=== PATIENT | male | born 1930 | race Caucasian/White ===

== ENCOUNTER 2016-06-09 09:26 | Inpatient (IN) | payer MEDICARE, OTHER ==
[2016-06-09] VITALS (10 sets, daily range): BP systolic 92–137; BP diastolic 67–97; BMI 27.5
[~2016-06-09] VITALS: Ht 175.3 cm; Wt 130.5 kg
[2016-06-09 09:50] LABS: BASOPHILS 0.1 % (0.0-2.0); EOSINOPHILS 0.5 % (0-7); HEMATOCRIT 42.1 % (42.0-54.0); HEMOGLOBIN 13.9 g/dL (13.5-17.5); IMMATURE GRANULOCYTES 0.3 % (0-5); LYMPHOCYTES 21.8 % (15-50); MCH 31.5 pg (26.0-34.0); MCV 95.5 fL (80.0-100.0); MEAN PLATELET VOLUME 11.9 fL (7.4-10.4); MONOCYTES 3.5 % (2-11); NEUTROPHILS 73.8 % (40-80); PLATELET COUNT 123 10x3/uL (130-400); RBC 4.41 10x6/uL (4.20-6.10); RDW 15.2 % (11.5-14.5); WBC 13.1 10x3/uL (4.8-10.8)
[2016-06-09 10:07] LABS: APPEARANCE CLEAR (CLEAR); BILIRUBIN NEGATIVE (NEGATIVE); COLOR YELLOW (YELLOW); GLUCOSE NEGATIVE (NEGATIVE); KETONE NEGATIVE (NEGATIVE); LEUKOCYTE ESTERASE TRACE (NEGATIVE); NITRITE NEGATIVE (NEGATIVE); PROTEIN TRACE mg/dL (NEGATIVE); UROBILINOGEN NORMAL (NORMAL)
[2016-06-09 10:08] LABS: BACTERIA MODERATE /hpf (NONE SEEN); EPITHELIAL CELLS 0-5 /hpf (0-5); HYALINE CAST 0-5 /lpf (NONE SEEN); MUCUS <1+ /lpf (NONE SEEN); RED CELLS - URINE 0-5 /hpf (0-5); WHITE CELLS - URINE 0-5 /hpf (0-5)
[2016-06-09 10:27] LABS: ALBUMIN 3.8 g/dL (3.4-5.0); ALKALINE PHOSPHATASE 79 U/L (46-116); ALT (SGPT) 69 U/L (10-68); BILIRUBIN - TOTAL 1.03 mg/dL (0.2-1.3); CREATININE - SERUM 1.3 mg/dL (0.6-1.3); GLUCOSE 222 mg/dL (74-106); PROTEIN - SERUM 6.8 g/dL (6.4-8.2); eGFR NON AFRICAN AMERICAN 56 mL/min (90-120)
[2016-06-09 10:50] LABS: CALC OSMOLALITY 291 mosm/kg (275-300); CALCIUM 9.1 mg/dL (8.5-10.1); CHLORIDE - SERUM 102 mmol/L (98-107); CKMB 0.7 U/L (0.0-3.6); CREATINE KINASE 24 UL (21-232); PRO BNP 3506 pg/mL (0-450); SODIUM 141 mmol/L (136-145); UREA NITROGEN 25 mg/dL (7-18)
[2016-06-09 10:51] LABS: POTASSIUM - SERUM 2.7 mmol/L (3.5-5.1)
[2016-06-09] MEDS ORDERED: ARICEPT10 MG PO (13:21)
[2016-06-09] MEDS ORDERED: LIPITOR40 MG PO (13:21)
[2016-06-09] MEDS ORDERED: PAROXETINE HCL10 MG PO (13:21)
[2016-06-09] MEDS ORDERED: NIASPAN500 MG PO (13:22)
[2016-06-09] MEDS ORDERED: NAMENDA XR28 MG PO (13:22)
[2016-06-09] MEDS ORDERED: LINZESS145 MCG PO (13:23)
[2016-06-09] MEDS ORDERED: BAYER CHEWABLE81 MG PO (13:23)
[2016-06-09] MEDS ORDERED: POTASSIUM CHLO10 ME1 PO (13:23)
[2016-06-09] MEDS ORDERED: ENULOSE10 G/15 ML PO (13:24)
--- NOTE | 2016-06-09 14:12 | NUR ---
PATIENTS ADMISSION COMPLETED. PATIENT VOMITED ONE TIME (APPROX 40CC) OF ORANGE LIQUID WITH A LITTLE MUCOUS PRESENT. IV TO RIGHT AC BEEPS EVERYTIME PATIENT MOVES HIS ARM. HIS SECOND IV SITED TO RIGHT WRIST ON FIRST STICK WITH 20G. LEFT THE RIGHT AC SALINE LOCKED. PATIENT REPOSITIONED TO LEFT SIDE FOR COMFORT. AT BEDSIDE. BOTH ARE TALKING WITH DR PAGAN WHEN THIS NURSE LEFT THE ROOM.
[2016-06-09 16:38] LABS: HEMOGLOBIN A1C 6.3 % (4.8-6.0)
--- NOTE | 2016-06-09 19:30 | NUR ---
Assessment complete. See flowsheet. Pt awake with at bedside upon entrance into room. SPO2 91% with O2 @ 4L NC and increased to 5L to obtain SPO2 92%. Respirations shallow and unlabored. Pt alert, oriented to person, place, time and situation and following all conversation and commands with no neuro deficits noted. Pupils size 3 bilaterally ERRLA. Pt moving all extremities 3/5 strength with generalized edema noted. Lung sounds clear/diminished to all cuevas. HR UCAF 104BPM with S1S2 auscultated. All peripheral pulses +2 with capillary refill <3 seconds. Pt left hand 22g PIV site CDI no s/s infection saline locked. Pt right A/C 20g PIV site CDI no s/s infection saline locked. Pt right wrist 20g PIV site CDI no s/s infection or infiltration with NS + 40mEq KCL infusing @ 100cc/hr. Abdomen soft; distended with BS present to all quadrants. Urinal within pt reach. Pt pulled up and positioned to left side with HOB @ 30 degrees. SCDs applied to lower extremities bilaterally. Pt arms and heels bridged. Pt denies pain at this time. Dinner tray removed from room per request. Ice water on bedside table and call light within pt reach. Temp 97.6F orally. Pt denies further needs at this time. CPOC.
--- NOTE | 2016-06-09 20:39 | NUR ---
ABG requested and resulted. K+ 4.0 at this time. PO2 unsatisfactory and pt placed on O2 @ 9L per oximizer by Radha RT. Pt resting. NO s/s distress. Call light and bedside table remain within pt reach. CPOC.
--- NOTE | 2016-06-09 21:30 | NUR ---
Pt helped to void 125cc concentrated, sania urine into urinal. Afterwards, pt pulled up in bed and positioned to right side. O2 via Oximizer increased to 10L for SPO2 90%.
--- NOTE | 2016-06-09 23:30 | NUR ---
Reassessment complete. See flowsheet. Pt awake and incontinent of soft, brown stool approx 300cc. Bedbath with gown and linen changes completed. Pt confused and states "good morning" and reoriented. pt attempting to remove oximizer and states that he is ready to get OOB for the day. Pt reminded of critical status and diagnosis and verbalizes understanding and states "I'm sorry." Pt remains cooperative. Pt positioned to back with HOB @ 30 degrees. Arms and heels rebridged. O2 @ 10L Oximizer. Lung sounds clear/diminished to all cuevas. HR CAF with S1S2 auscultated. All peripheral pulses +2 with capillary refill <3 seconds. PIV sites remain CDI and unchanged with NO IVF changes to note. BS +. Pt denies need to void at this time. SCDs soiled and new applied. No other changes to note. Call light and bedside table remain within pt reach. CPOC.
[2016-06-10] VITALS (24 sets, daily range): BP systolic 108–150; BP diastolic 73–113; Ht 175.3 cm; Wt 130.5 kg
--- NOTE | 2016-06-10 01:30 | NUR ---
Pt awake and remains disoriented to place, time and situation. Pt remains cooperative, however and reorientation attempted. Pt concerned that his does not know his whereabouts and assured that she is aware of his hospitalization. Pt remains calm and cooperative at this time and states "well I guess I'm stuck here." Pt repositioned to left side. Arms and heels rebridged after pt pulled up in bed. HOB @ 30 degrees. Oximizer @ 10L. SPO2 94%. Call light and bedside table remain within pt reach. CPOC.
--- NOTE | 2016-06-10 03:30 | NUR ---
Reassessment complete. See flowsheet. Pt awake and sitting up on bedside attempting to get OOB with bed alarm alarming. Pt incontinent of large, soft BM approx 1L to linens. Right wrist PIV removed and site bleeding. Pt gown and linens removed. Pt stood at bedside for complete bath with gown and linen changes. Dressing applied to old PIV site. Pt reoriented and remains calm but states that he is ready to leave. Pt reoriented to place, time and situation and remains confused but cooperative and apologetic at this time. Pt helped back to bed and positioned to back for AM CXR with arms and heels bridged. IVF moved to left hand 22g PIV site CDI with NO IVF changes to note. New sheet and warm blanket placed. Call light and bedside table within pt reach. Bed alarm turned back on. VSS. SPO2 96% at this time. CPOC.
[2016-06-10 04:47] LABS: BASOPHILS 0.1 % (0.0-2.0); EOSINOPHILS 0 % (0-7); HEMATOCRIT 41.1 % (42.0-54.0); HEMOGLOBIN 13.8 g/dL (13.5-17.5); IMMATURE GRANULOCYTES 0.3 % (0-5); MCH 31.6 pg (26.0-34.0); MCHC 33.6 g/dL (31.0-37.0); MCV 94.1 fL (80.0-100.0); MEAN PLATELET VOLUME 11.7 fL (7.4-10.4); NEUTROPHILS 73.6 % (40-80); PLATELET COUNT 117 10x3/uL (130-400); RBC 4.37 10x6/uL (4.20-6.10); RDW 15.3 % (11.5-14.5); WBC 11.8 10x3/uL (4.8-10.8)
[2016-06-10 04:53] LABS: ANION GAP 17.8 mmol/L (8-16); CALCIUM 9.2 mg/dL (8.5-10.1); CARBON DIOXIDE 22.7 mmol/L (21.0-32.0); CREATININE - SERUM 1.3 mg/dL (0.6-1.3); POTASSIUM - SERUM 4.5 mmol/L (3.5-5.1)
--- NOTE | 2016-06-10 05:30 | NUR ---
Pt resting with VSS and no s/s pain or distress. Pt allowed to continue resting undisturbed. Call light and bedside table remain within pt reach. CPOC.
--- NOTE | 2016-06-10 09:17 | NUR ---
AT BEDSIDE. UPDATE GIVEN.
--- NOTE | 2016-06-10 15:47 | NUR ---
PARTIAL BED BATH AND LINEN CHANGE.
--- NOTE | 2016-06-10 19:30 | NUR ---
Assessment complete. See flowsheet. Pt sitting up in bed upon entrance into room with legs hanging over left side of bed. Pt helped to reposition in bed after gown and linen changes from small void and stool. Partial bath with incontinence care completed. Pt positioned to left side with HOB elevated to 30 degrees; arms and heels bridged. SPO2 96% with Oximizer @ 10L and decreased to 8L. Lung sounds CTA with diminished lower lobes. HR CAF with S1S2 auscultated. All peripheral pulses +2 with capillary refill <3 seconds. Right A/C PIV site CDi saline flushed and locked. BP cuff moved to right arm. Left hand PIV site CDI no s/s infection or infiltration with NS + 40mEq KCL infusing @ 100cc/hr. BS +. Abdomen soft and distended; tympanic to percussion. SCDs secure. Pt call light and bedside table placed within reach. Pt denies pain or needs at this time. CPOC.
--- NOTE | 2016-06-10 21:30 | NUR ---
Pt repositioned to right side. HOB @ 30 degrees. Pt remains calm and cooperative; oriented to person only. SPO2 97%. O2 weaned to 6L Oximizer.
--- NOTE | 2016-06-10 23:30 | NUR ---
Reassessment complete. See flowsheet. Pt incontinent of large stool with urine. Chlorhexidine bed bath with gown and linen changes completed. Pt remains oriented to person only. O2 remains @ 6L oximizer with SPO2 95% and decreased to 5L oximizer. Lung sounds remain CTA with diminished lower lobes. HR CAF. S1S2 auscultated. All peripheral pulses +2 with capillary refill <3 seconds. PIV sites unchanged with NO IVF changes to note. BS +. Pt repositioned to back with HOB @ 30 degrees. Call light and bedside table remain within pt reach. CPOC.
[2016-06-11] VITALS (24 sets, daily range): BP systolic 116–156; BP diastolic 91–124
--- NOTE | 2016-06-11 01:30 | NUR ---
Pt helped onto bedpan per request with no stool produced. Pt removed with pericare completed. Pt remains confused but cooperative. VSS. Pt repositioned to left side with HOB elevated to 30 degrees. Arms and heels bridged. Call light and bedside table remain within pt reach. No s/s pain or distress. CPOC.
--- NOTE | 2016-06-11 03:30 | NUR ---
Reassessment complete. See flowsheet. Pt awake and positioned to back for AM CXR. Pt remains confused and oriented to person only but calm and cooperative. O2 remains @ 5L Oximizer and lung sounds clear to all cuevas with diminished lower lobes. HR CAF with S1S2 auscultated. All peripheral pulses +2 with capillary refill <3 seconds. PIV site CDI with NO IVF changes to note and no s/s infection or infiltration. Right A/C PIV site CDI with no s/s infection saline locked. BS +. SCDs secure. Pt arms and heels rebridged. NO s/s pain or distress. Call light and bedside table remain within pt reach. CPOC.
--- NOTE | 2016-06-11 05:30 | NUR ---
Pt incontinent of large void. Bed bath with gown and linen change completed. Pt repositioned to [facility] side. HOB @ 30 degrees. Arms and heels rebridged. No other changes to note. Call light and bedside table remain within pt reach. CPOC.
[2016-06-11 06:43] LABS: BASOPHILS 0.1 % (0.0-2.0); EOSINOPHILS 0.1 % (0-7); HEMATOCRIT 41.9 % (42.0-54.0); HEMOGLOBIN 13.9 g/dL (13.5-17.5); IMMATURE GRANULOCYTES 0.3 % (0-5); LYMPHOCYTES 24.5 % (15-50); MCH 31.7 pg (26.0-34.0); MCHC 33.2 g/dL (31.0-37.0); MCV 95.4 fL (80.0-100.0); MEAN PLATELET VOLUME 11.9 fL (7.4-10.4); MONOCYTES 5.6 % (2-11); NEUTROPHILS 69.4 % (40-80); PLATELET COUNT 121 10x3/uL (130-400); RBC 4.39 10x6/uL (4.20-6.10); RDW 15.6 % (11.5-14.5); WBC 12.3 10x3/uL (4.8-10.8)
[2016-06-11 07:00] LABS: ALBUMIN 3.5 g/dL (3.4-5.0); ALKALINE PHOSPHATASE 71 U/L (46-116); ALT (SGPT) 65 U/L (10-68); BILIRUBIN - TOTAL 0.68 mg/dL (0.2-1.3); CALCIUM 8.9 mg/dL (8.5-10.1); CARBON DIOXIDE 19.6 mmol/L (21.0-32.0); CHLORIDE - SERUM 107 mmol/L (98-107); GLUCOSE 139 mg/dL (74-106); POTASSIUM - SERUM 4.9 mmol/L (3.5-5.1); PROTEIN - SERUM 6.2 g/dL (6.4-8.2); SODIUM 138 mmol/L (136-145)
[2016-06-11 07:01] LABS: CALC OSMOLALITY 279 mosm/kg (275-300); CREATININE - SERUM 0.8 mg/dL (0.6-1.3); UREA NITROGEN 19 mg/dL (7-18); eGFR NON AFRICAN AMERICAN > 90 mL/min (90-120)
--- NOTE | 2016-06-11 12:50 | HP ---
PATIENT: FERNY WILLIAM MEDICAL RECORD: [id number] ACCOUNT: [id number] LOCATION:[facility] [id number] : 32 ADMISSION DATE: 06/09/16 HISTORY AND PHYSICAL EXAMINATION DATE OF ADMISSION: 06/09/2016 CHIEF COMPLAINT: Syncopal episode. HISTORY OF PRESENT ILLNESS: This is an 85-year-old white male who was brushing his teeth this morning and reportedly passed out, lost consciousness for a few moments. The patient states that he may have passed out the night before as well. He was brought to the ER where his systolic pressure was 88-90. He has been found to be in atrial fibrillation with rapid ventricular response. D-dimer was elevated over 20 and further evaluation with CT angiogram of the chest showed massive PE. He is admitted to the ICU for further care and closer monitoring. PAST MEDICAL HISTORY AND PAST SURGICAL HISTORY: He has had a history of hypertension, though on no medicines now. He has hyperlipidemia. He has some cognitive decline, degenerative arthritis, history of prostate cancer. He has a history of coronary artery disease and has seen Dr. Reeves in the past. He has had constipation issues. Unfortunately, the patient decided to stop taking all of his medicines at least a month ago. HOME MEDICATIONS: None, though he was on Aricept 10 mg a day, Namenda XR 28 once a day, aspirin 81 mg a day, atorvastatin 40 mg a day, Linzess 145 mcg capsule everyday p.r.n. constipation, Niaspan 500 mg once a day, Paxil 10 mg once a day, potassium 20 mEq once a day. DRUG ALLERGIES: None known. 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 He lives with his . HABITS: Former smoker. No alcohol or drugs. FAMILY HISTORY: Father at 67 due to complications of stroke. Mother at 94 of old age, she had hypertension and arthritis. A sister with history of heart disease and arthritis. One brother of an AR at age 82 and another brother of CHF at 82. REVIEW OF SYSTEMS: GENERAL: No major weight changes. HEENT: No particular sinus or allergy problems. RESPIRATORY: No history of asthma or emphysema. CARDIAC: See above history. He has seen Dr. Reeves in the past, though I do not remember if he has seen him regularly or not. GASTROINTESTINAL: He has had some constipation and diverticulosis problems. GENITOURINARY: Remote history of prostate cancer, now followed by Dr. Saldana. MUSCULOSKELETAL: ____ arthritis problems. He has had bilateral knee arthroscopies in 2004 and left patellar removed in the . NEUROLOGIC: No seizures, no headaches. He has general mental decline. PSYCHIATRIC: He has had some depression in the past. HISTORY AND PHYSICAL [id number] STEWARTFERNY GRIFFINN PHYSICAL EXAMINATION: VITAL SIGNS: Today, temperature 97.3, heart rate runs between 105 and 135, respirations 16, blood pressure 104/67. GENERAL: He is awake and alert. at bedside. HEENT: Grossly within normal limits. NECK: Supple. No JVD or bruit. HEART: Irregularly irregular with tachycardia. LUNGS: Fairly clear. ABDOMEN: Soft. EXTREMITIES: No edema. LABORATORY DATA: CBC showed a white count of 13,100, hemoglobin 13.9, hematocrit 42.1, platelets 123,000. Sodium 141, potassium low at 2.7, chloride 102, CO2 of 21, BUN 25, creatinine 1.3, glucose was 222. Hemoglobin A1c is a little elevated at 6.3. AST mildly elevated at 59, ALT mildly elevated at 69. Troponin 0.050, proBNP 3506. D-dimer greater than 20. Urinalysis, trace leukocyte, moderate bacteria. IMAGING: The patient had a chest x-ray showing no obvious abnormalities. He had a CT angiogram of the chest showing extensive bilateral pulmonary emboli, aberrant right subclavian artery, dependent atelectasis in the lung bases. He had a venous Doppler ultrasound done of the lower extremities showing no evidence of DVTs. There is a superficial thrombosis in the lesser saphenous vein on the right. ASSESSMENT: 1. Bilateral pulmonary emboli. 2. Atrial fibrillation with rapid ventricular response. 3. History of hypertension, now hypotension. 4. History of coronary artery disease. 5. History of aortic stenosis. 6. History of hyperlipidemia. PLAN: He has stopped all of his medicines over a month ago. We will restart most of those. He has been seen in consultation by cardiology and pulmonology. He is on subcutaneous Lovenox and we will roll changer to Xarelto with his blood pressure being low. Cardiology said he is rate controlled right now with digoxin. Echocardiogram was done showing an ejection fraction of 30% to 35%, moderate aortic stenosis, moderate mitral regurgitation at this time. Other tests and procedures as warranted. TRANSINT:[id number] Voice Confirmation ID: [id number] DOCUMENT ID: [id number] ANGIE LIMA MD at 1250 CC: [id number] DICTATION DATE: 06/10/16 1330 INTERNATIONAL BROADCAST MUSIC LIBRARIAN: 06/10/16 1436 ADM IN [facility] [address] [place] [address]
--- NOTE | 2016-06-11 19:20 | NUR ---
ASSESSMENT COMPLETED. ALERT AND CONFUSED TO PLACE AND TIME. O2 @ 5L VIA NC, JANAY LUNGS DIMINISHED. LT HAND PIV, SITE WITHOUT REDNESS OR EDEMA WITH NS WITH 40KCL @ 100CC/HR VIA PUMP. DENIES ANY NEEDS AT THIS TIME. AFIB ON THE MONITOR.
--- NOTE | 2016-06-11 20:45 | NUR ---
INCONTINENT OF STOOL AND URINE. BED BATH AND LINEN CHANGE COMPLETED. TOLLERATED WELL.
--- NOTE | 2016-06-11 21:00 | NUR ---
NO VISITOR'S AT THIS TIME.
--- NOTE | 2016-06-11 23:10 | NUR ---
REASSESSMENT COMPLETE. CONTROLLED AFIB SHOWING ON MONITOR. RR CLEAR BILATERALLY IN UPPER LOBES; DIMINISHED BILATERALLY IN LOWER LOBES. PERRLA; 3MM; BRISK. L HAND PIV; PATENT. NC @ 5L. PT WEARING BRIEF; INCONTINENT.
[2016-06-12] VITALS (17 sets, daily range): BP systolic 94–181; BP diastolic 69–120
--- NOTE | 2016-06-12 01:42 | NUR ---
PT RESTING; EYES CLOSED. VSS. NO DISTRESS NOTED. CALL LIGHT IN REACH. WILL CONTINUE TO MONITOR.
--- NOTE | 2016-06-12 02:55 | NUR ---
REASSESSMENT COMPLETE. NO CHANGES FROM PREVIOUS ASSESSMENT. CALL LIGHT IN REACH. WILL CONTINUE TO MONITOR.
[2016-06-12 05:51] LABS: BASOPHILS 0.1 % (0.0-2.0); EOSINOPHILS 0.6 % (0-7); HEMOGLOBIN 12.4 g/dL (13.5-17.5); IMMATURE GRANULOCYTES 0.3 % (0-5); LYMPHOCYTES 24.9 % (15-50); MCH 31.5 pg (26.0-34.0); MCHC 33.5 g/dL (31.0-37.0); MCV 93.9 fL (80.0-100.0); MEAN PLATELET VOLUME 12.4 fL (7.4-10.4); MONOCYTES 7.1 % (2-11); PLATELET COUNT 131 10x3/uL (130-400); RBC 3.94 10x6/uL (4.20-6.10); RDW 15.3 % (11.5-14.5); WBC 9.3 10x3/uL (4.8-10.8)
[2016-06-12 06:32] LABS: ALBUMIN 3.2 g/dL (3.4-5.0); ALKALINE PHOSPHATASE 67 U/L (46-116); ALT (SGPT) 67 U/L (10-68); BILIRUBIN - TOTAL 0.73 mg/dL (0.2-1.3); CALC OSMOLALITY 279 mosm/kg (275-300); CALCIUM 8.7 mg/dL (8.5-10.1); CHLORIDE - SERUM 105 mmol/L (98-107); CREATININE - SERUM 0.7 mg/dL (0.6-1.3); GLUCOSE 121 mg/dL (74-106); POTASSIUM - SERUM 4.3 mmol/L (3.5-5.1); PROTEIN - SERUM 5.7 g/dL (6.4-8.2); SODIUM 139 mmol/L (136-145); UREA NITROGEN 15 mg/dL (7-18); eGFR NON AFRICAN AMERICAN > 90 mL/min (90-120)
--- NOTE | 2016-06-12 08:02 | NUR ---
LYING IN BED AWAKE, CONFUSED TO TIME OF DAY. INITIAL ASSESSMENT PERFORMED, SKIN INTACT. BEDDING AND GOWN CHANGED. BRIDGED HEELS WITH PILLOW. NC 4.5L W NO DISTRESS. VITALS ALL WNL. CONTINUES TO BE IN CONTROLLED FIB. SITTING UP EATING BREAKFAST.
--- NOTE | 2016-06-12 09:58 | NUR ---
Nutrition Follow Up: Chart reviewed. Diet: Diabetic PO Intake: 50% (4 meal avg) I>O +BM 06/12/16 Meds: NS KCl @ 100 ml/hr, Humalog, Levophed, Dopamine Labs noted Pt with fair po intake at this time. Rec continue current diet. RD following.
--- NOTE | 2016-06-12 11:23 | NUR ---
1100 REASSESSMENT DOCUMENTED PER FLOWSHEET, VITALS ALL WNL.
--- NOTE | 2016-06-12 13:50 | NUR ---
ON FLOOR TO SEE PATIENT. V/O GIVEN TO D/C NS W KCL AND SALINE LOCK. OK TO TRANSFER TO FLOOR.
--- NOTE | 2016-06-12 15:47 | NUR ---
RESTING WITH EYES CLOSED, VITALS ALL WNL. ASSESSMENT DOCUMENTED PER FLOWSHEET. DENIES NEEDS AT THIS TIME.
--- NOTE | 2016-06-12 16:25 | NUR ---
PIV REMOVED FROM LEFT ARM AND BANDAGE APPLIED. COMPLETE BATH GIVEN, HAIR WASHED WITH GOWN CHANGE. REPORT CALLED TO KENDAL SEALS ON MED II. PATIENT WILL TRANSFER TO 2110 VIA WHEELCHAIR.
--- NOTE | 2016-06-12 17:00 | NUR ---
PT ARRIVED TO ROOM VIA W/C. TRANSFERRED TO BED WITH MIN. ASSIST. VSS. O2 SAT RUNNING LOW @88% NC @3L UPPED NC TO 4L AND PTS SAT NOW 92% WILL CONTINUE TO MONITER. APPLIED SCDS AND APPLIED TELEMETRY ORDERED. PT PLEASANTLY CONFUSED. RR NONLABORED. PT HAS A L.HAND PIV SL. SITE CDI WITH SWAB CAPS IN USE. NO SS OF INFILTRATION OR INFECTION NOTED. PT DENIES ANY CURRENT PAIN OR FURTHER NEEDS. WILL CPOC.
--- NOTE | 2016-06-12 17:47 | NUR ---
PT SITTING UP IN BED RESTING QUIETLY EATING HIS DINNER TRAY. RR NONLABORED WITH NC@4L IN PLACE. O2 SAT 93% PT DENIES ANY NEEDS AT THIS TIME. WILL CPOC.
--- NOTE | 2016-06-13 02:22 | NUR ---
REC'D DURING WALKING ROUNDS,ALERT BUT CONFUSED TO TIME/PLACE SITUATION.BED ALARM IN PLACE.MONITOR SHOWING UCAF RATE 101. WILL CONTINUE TO MONITOR FOR ANY CHGES. AND FOLLOW CURRENT PLAN OF CARE.
[2016-06-13 05:35] VITALS: BP 127/101
[2016-06-13 06:31] LABS: BASOPHILS 0.1 % (0.0-2.0); EOSINOPHILS 0.6 % (0-7); HEMOGLOBIN 12.5 g/dL (13.5-17.5); IMMATURE GRANULOCYTES 0.3 % (0-5); LYMPHOCYTES 25.4 % (15-50); MCH 31.3 pg (26.0-34.0); MCHC 33.8 g/dL (31.0-37.0); MCV 92.5 fL (80.0-100.0); MEAN PLATELET VOLUME 11.6 fL (7.4-10.4); MONOCYTES 6.9 % (2-11); NEUTROPHILS 66.7 % (40-80); PLATELET COUNT 138 10x3/uL (130-400); RDW 15.4 % (11.5-14.5); WBC 7.9 10x3/uL (4.8-10.8)
[2016-06-13 07:01] LABS: ALBUMIN 3.1 g/dL (3.4-5.0); ALKALINE PHOSPHATASE 68 U/L (46-116); ALT (SGPT) 65 U/L (10-68); BILIRUBIN - TOTAL 1.03 mg/dL (0.2-1.3); CALC OSMOLALITY 271 mosm/kg (275-300); CALCIUM 8.6 mg/dL (8.5-10.1); CARBON DIOXIDE 23.7 mmol/L (21.0-32.0); CHLORIDE - SERUM 102 mmol/L (98-107); CREATININE - SERUM 0.9 mg/dL (0.6-1.3); GLUCOSE 119 mg/dL (74-106); POTASSIUM - SERUM 3.7 mmol/L (3.5-5.1); PROTEIN - SERUM 5.8 g/dL (6.4-8.2); SODIUM 135 mmol/L (136-145); UREA NITROGEN 16 mg/dL (7-18); eGFR NON AFRICAN AMERICAN 85 mL/min (90-120)
[2016-06-13 07:25] VITALS: BP 145/85
--- NOTE | 2016-06-13 10:13 | NUR ---
ALERT. ORIENTED TO PERSON. REORIENT TO PLACE AND TIME. AT BEDSIDE. BLEEDING MILD AMOUNT FROM RECTUM. STATES, "HE DOES HAVE HEMORRHOIDS BUT HAS NEVER BLED FROM THEM." CALLED 'S OFFICE 3X AND LEFT MESSAGE TO INFORM HIM OF FINDINGS. 77bpm CONTROLLED A-FIB ON TELEMETRY. BED LOCKED AND LOW. CALL LIGHT IN REACH. TWO SIDERAILS UP. BED ALARM ON. XARELTO HELD DUE TO BLEEDING. CONTINUE PLAN OF CARE.
[2016-06-13 11:21] VITALS: BP 142/91
[2016-06-13 14:26] LABS: HEMATOCRIT 37.6 % (42.0-54.0); HEMOGLOBIN 12.8 g/dL (13.5-17.5); MCH 31.6 pg (26.0-34.0); MCV 92.8 fL (80.0-100.0); MEAN PLATELET VOLUME 11.5 fL (7.4-10.4); RBC 4.05 10x6/uL (4.20-6.10); RDW 15.6 % (11.5-14.5); WBC 8.8 10x3/uL (4.8-10.8)
[2016-06-13 15:12] LABS: APTT 31.4 SECONDS (22.8-39.4); INR 1.54 (0.85-1.17); PROTIME 18.5 SECONDS (11.6-15.0)
--- NOTE | 2016-06-13 15:18 | NUR ---
Is the patient Alert and Oriented? Yes 0 * How many steps to enter\exit or inside your home? 1-2 0 * PCP DR. LIMA 0 * Pharmacy [facility] 0 * Preadmission Environment Acute Inpatient Rehab 0 * ADLs Independent 0 * Equipment None 0 * List name and contact numbers for known caregivers / representatives who currently or will assist patient after discharge: SPOUSE: MICHELLE ORELLANA [phone] * Community resources currently utilized None 0 * Additional services required to return to the preadmission environment? Yes 0 * Can the patient safely return to the preadmission environment? No 0 * Has this patient been hospitalized within the prior 30 days at any hospital? No PATIENT LIVES AT HOME WITH HIS , MICHELLE ORELLANA. HE STATES HE WAS INDEPENDENT IN HIS ADL'S PRIOR TO COMING TO THE HOSPITAL. PATIENT STATES HIS PCP IS DR. LIMA. HE GETS HIS MEDS FROM [facility]. HE DENIES EVER HAVING HOME HEALTH AND DENIES USE OF ANY EQUIPMENT. THERE ARE 1-2 STEPS TO ENTER HIS HOME. PATIENT AND HIS ARE INTERESTED IN ACUTE REHAB. PATIENT'S STATES SHE IS NOT ABLE TO PULL OR LIFT HIM AND WOULD LIKE HIM TO GO TO REHAB. CM TO FOLLOW.
[2016-06-13 15:33] VITALS: BP 122/86
--- NOTE | 2016-06-13 16:40 | NUR ---
INTITIATE HEPARIN DRIP ORDERED. PTT, PT AND INR ORDERED IN 3HRS PER DR ORDER. MONITOR FOR MORE BLEEDING. UNCONTOLLED A-FIB 114bpm ON TELEMETRY. CONTINUE PLAN OF CARE AND SAFETY PRECAUTIONS.
--- NOTE | 2016-06-13 19:12 | NUR ---
Received patient in bed resting, IV infusing of Heparin @ 8ml/hr. SCDs on, very confused, only oriented to person at this time. Unable to state where he is, wants to speak to his . "Why am I here, heads are going to roll if you don't let me out of here." Reorineted to place, time and situation. "I want to speak to someone in authority!" Reassurance given, somewhat calmer.
--- NOTE | 2016-06-13 19:15 | NUR ---
Left unit in bed to go to radiology with transporters for abdominal unltrasound.
[2016-06-13 20:03] LABS: APTT 33.1 SECONDS (22.8-39.4); INR 1.37 (0.85-1.17); PROTIME 16.8 SECONDS (11.6-15.0)
--- NOTE | 2016-06-13 20:54 | NUR ---
Returned to unit from radiology in bed accompanied by staff and transporter. Remains very confused, somewaht calmer after verbal 1:1. IV infusing.
[2016-06-13 22:28] VITALS: BP 153/90
--- NOTE | 2016-06-13 22:30 | NUR ---
[facility] patient calling out "Help me!" Found patient standing by side of bed, had removed SCDs, gown and stonecutter apprentice hand off. Small amount of loose bloody stool dripping on floor. PIV site checked and insitu. Tech and ticket writer assisted patient back to bed, hygiene care done, new gown put on, telemetry reconnected, Oxygen reconnected @5L/min. Remains very confused, demanding to be released to go home now. Allowed patient to vent frustrations, reoriented repeatedly, finally agreed to stay the night and wait to see his tomorrow. Reassure him that his knew where he was.
--- NOTE | 2016-06-13 23:00 | NUR ---
Spoke to Charge Nurse regarding Heparin protocol as have searched in computer for results of PTT, called lab, will be up to draw.
--- NOTE | 2016-06-13 23:45 | NUR ---
PTT results back from lab draw @2320. PTT = 35.2 Heparin gtt increased per protocol from 800 Units to 1000 Units per hr (10ml/hr).
--- NOTE | 2016-06-14 00:15 | NUR ---
Calling out again, asking to void, assisted in using urinal, voided 200 cc's of dark sania colored urine. Resettled to bed.
[2016-06-14 00:59] VITALS: BP 115/67
[2016-06-14 05:21] VITALS: BP 120/79
--- NOTE | 2016-06-14 06:30 | NUR ---
Patient has voided in urinal another time and been incontinent in bed, also got out of bed and voided in toilet. Has had three small tarry bloody stools paste consistency, approx 15 to 30 mls each time. Slept intermittently. Heparin gtt still infusing @10ml/hr. PTT results still pending from lab.
[2016-06-14 06:58] LABS: BASOPHILS 0 % (0.0-2.0); EOSINOPHILS 0.4 % (0-7); HEMATOCRIT 35.8 % (42.0-54.0); HEMOGLOBIN 12.1 g/dL (13.5-17.5); IMMATURE GRANULOCYTES 0.3 % (0-5); LYMPHOCYTES 23.6 % (15-50); MCH 31.3 pg (26.0-34.0); MCHC 33.8 g/dL (31.0-37.0); MCV 92.5 fL (80.0-100.0); MEAN PLATELET VOLUME 11.5 fL (7.4-10.4); MONOCYTES 7.8 % (2-11); NEUTROPHILS 67.9 % (40-80); PLATELET COUNT 137 10x3/uL (130-400); RBC 3.87 10x6/uL (4.20-6.10); RDW 15.7 % (11.5-14.5); WBC 9.1 10x3/uL (4.8-10.8)
[2016-06-14 07:35] LABS: ALBUMIN 2.9 g/dL (3.4-5.0); ALKALINE PHOSPHATASE 67 U/L (46-116); ALT (SGPT) 66 U/L (10-68); CALC OSMOLALITY 274 mosm/kg (275-300); CALCIUM 8.2 mg/dL (8.5-10.1); CARBON DIOXIDE 25.3 mmol/L (21.0-32.0); CHLORIDE - SERUM 101 mmol/L (98-107); GLUCOSE 132 mg/dL (74-106); POTASSIUM - SERUM 3.8 mmol/L (3.5-5.1); PROTEIN - SERUM 5.7 g/dL (6.4-8.2); SODIUM 136 mmol/L (136-145); UREA NITROGEN 15 mg/dL (7-18); eGFR NON AFRICAN AMERICAN 76 mL/min (90-120)
[2016-06-14 08:00] VITALS: BP 141/72
[2016-06-14 12:00] VITALS: BP 135/87
--- NOTE | 2016-06-14 14:24 | CN ---
PATIENT NAME:FERNY WILLIAM MEDICAL RECORD: [id number] : 34 LOCATION:[facility] D.2111 ADMIT DATE: 06/09/16 ACCOUNT: [id number] CONSULTING PHYSICIAN: HARSHAD KIMBALL MD REFERRING PHYSICIAN: ANGIE WAGONER MD DATE OF CONSULTATION: 06/13/2016 Gastroenterology Consultation REFERRING PHYSICIAN: Angie Wagoner MD HISTORY OF PRESENT ILLNESS: The patient is an 85-year-old white male who was admitted to the hospital after an episode of syncope. He was brought to the ER where he was found to have hypotension, atrial fibrillation with rapid ventricular rate, positive D-dimer and CT revealed a significant PE. He was subsequently placed on anticoagulation and has been stabilized in that regard. However, he has now developed some hematochezia over the past day or so, thus this consult. His history is a little unclear. He apparently has history of prostate cancer for possible radiation therapy. There is even a history of possible colon cancer, though I am not getting a clear ____ on that. He says he has had a couple of colonoscopies in the past, but not sure where or when and what the findings were. He has had some constipation issues. PAST MEDICAL HISTORY: As above. He also has hyperlipidemia, hypertension, cognitive decline, DJD and coronary artery disease. HOME MEDICATIONS: None. He had been on atorvastatin, Linzess, aspirin, Namenda, Aricept, Niaspan, ____ and potassium, but he quit taking all of these a few months ago. CURRENT MEDICATIONS: Includes heparin. This was recently changed from Lovenox to heparin. He is also on Norvasc, clonidine, digoxin, Pepcid, ____, Lipitor, Aricept and insulin. He has been on dopamine, Levophed recently as well. SOCIAL HISTORY: The patient is a former smoker. He has no history of alcohol or drug use. FAMILY HISTORY: Negative for GI diseases. REVIEW OF SYSTEMS: Noncontributory other than in the HPI. PHYSICAL EXAMINATION: GENERAL: Reveals an elderly white male in no acute distress. VITAL SIGNS: Stable, afebrile. CHEST: Clear. HEART: Irregular rhythm. ABDOMEN: Soft and nontender. EXTREMITIES: No edema. LABORATORY DATA: At present reveals a white count of 8000, hematocrit 37, MCV of 92 and platelet count 152,000. Electrolytes are normal. BUN 16 and creatinine 0.9. Liver enzymes are normal. INR is 1.5. CONSULT REPORT [id number] FERNY WILLIAM X-RAY DATA: As above. IMPRESSION: New onset of mild hematochezia of unclear etiology. All of this started after getting anticoagulation for an acute pulmonary embolus. As noted above, he apparently has had a couple of colonoscopies before and possibly has a history of colon cancer. 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 RECOMMENDATION: 1. Bleeding scan. 2. Try to obtain records from his last colonoscopy. 3. Follow his hematocrit and transfuse as needed, keep hematocrit greater than 28. Of note, his hematocrit has only dropped from 41 to 37 since this all started, so obviously this seems to be a rectal issue and apparently fairly mild. 4. Clear liquid diet for now. 5. It is going to be hard for me to consider and perform any type of even limited endoscopy in this setting with an acute pulmonary embolus and hypotension. TRANSINT:[id number] Voice Confirmation ID: [id number] DOCUMENT ID: [id number] HARSHAD KIMBALL MD at 1424 CC: ANGIE WAGONER MD [id number] DICTATION DATE: 06/13/161758 INSTRUCTIONAL TECHNOLOGY COACH: 06/13/162023 ADM IN [place] [id number] [place] [address]
[2016-06-14 16:00] VITALS: BP 138/79
--- NOTE | 2016-06-14 19:30 | NUR ---
RECEIVED REPORT, 02L, [id number], IV-L WRIST-HEPRIN @10,BED ALARM IS ON, CALL LIGHT IN REACH, BED IS LOW, SRX2
[2016-06-14 20:26] VITALS: BP 137/65
--- NOTE | 2016-06-14 21:00 | NUR ---
[id number], NO COVERAGE NEEDED
[2016-06-15 00:38] VITALS: BP 128/83
[2016-06-15 03:34] LABS: BASOPHILS 0.1 % (0.0-2.0); HEMATOCRIT 35.5 % (42.0-54.0); IMMATURE GRANULOCYTES 0.2 % (0-5); LYMPHOCYTES 24.6 % (15-50); MCH 31.6 pg (26.0-34.0); MCHC 33.8 g/dL (31.0-37.0); MCV 93.4 fL (80.0-100.0); MEAN PLATELET VOLUME 11.2 fL (7.4-10.4); MONOCYTES 6.2 % (2-11); NEUTROPHILS 67.9 % (40-80); PLATELET COUNT 121 10x3/uL (130-400); RDW 15.7 % (11.5-14.5)
[2016-06-15 03:50] LABS: ALKALINE PHOSPHATASE 68 U/L (46-116); ALT (SGPT) 71 U/L (10-68); BILIRUBIN - TOTAL 0.87 mg/dL (0.2-1.3); CALC OSMOLALITY 275 mosm/kg (275-300); CALCIUM 8.8 mg/dL (8.5-10.1); CARBON DIOXIDE 29.2 mmol/L (21.0-32.0); CHLORIDE - SERUM 103 mmol/L (98-107); CREATININE - SERUM 0.9 mg/dL (0.6-1.3); DIGOXIN 0.98 ng/mL (0.90-2.00); GLUCOSE 121 mg/dL (74-106); POTASSIUM - SERUM 3.6 mmol/L (3.5-5.1); PROTEIN - SERUM 5.6 g/dL (6.4-8.2); SODIUM 138 mmol/L (136-145); UREA NITROGEN 11 mg/dL (7-18); eGFR NON AFRICAN AMERICAN 85 mL/min (90-120)
--- NOTE | 2016-06-15 03:53 | NUR ---
HEALTH AND HUMAN PERFORMANCE PROFESSOR AT BEDSIDE TO OBTAIN VITALS, CALL LIGHT IN REACH. WILL CONTINUE WITH PLAN OF CARE.
[2016-06-15 04:40] VITALS: BP 146/90
--- NOTE | 2016-06-15 05:02 | NUR ---
SLEEPING, BEDALARM ON, CALL LIGHT IN REACH, HEPRIN INFUSING @ 13
--- NOTE | 2016-06-15 07:20 | NUR ---
RECIEVED REPORT ON PATIENT, PATIENT IS ALERT AND ORIENTED AT THIS TIME. IS AT BEDSIDE. PATIENT IS CONTROLLED AFIB ON MONITOR WITH A RATE OF 69 AT THIS TIME. PATIENT HAS A L HAND IS INFUSING WITH HEPARIN AT 13ML/HR PER PROTOCOL. PATIENT IS ON 11/MIN VIA OXIMIZER WITH O2 SAT 97%. PATIENT DENIES ANY NEEDS OR PAINA T THIS TIME. BED LOW AND LOCKED, CALLL LIGHT IN REACH. CPOC
[2016-06-15 08:00] VITALS: BP 113/80
--- NOTE | 2016-06-15 09:15 | NUR ---
MORNING MEDICATION GIVEN, ASSESSMENT DONE. PATIENT DENIES ANY PAIN AT THIS TIME. AT BEDSIDE. BED LOW AND LOCKED. CALL LIGHT IN REACH. CPOC
[2016-06-15 12:00] VITALS: BP 125/85
--- NOTE | 2016-06-15 12:27 | NUR ---
PATIENT HEPARIN DRIP INCREASED TO 14ML/HR PER HEPARIN PROTOCOL FOR A PTT OF 59.4. CPOC
--- NOTE | 2016-06-15 15:40 | NUR ---
PATIENT HEPARIN DRIP INCREASED TO 15ML/HR PER PROTOCOL. CPOC
[2016-06-15 16:00] VITALS: BP 122/76
--- NOTE | 2016-06-15 16:23 | CN ---
PATIENT NAME:FERNY WILLIAM MEDICAL RECORD: [id number] : 34 LOCATION:D. D.2111 ADMIT DATE: 06/09/16 ACCOUNT: [id number] CONSULTING PHYSICIAN: REGINALDO HEBERT MD REFERRING PHYSICIAN: ANGIE LIMA MD DATE OF CONSULTATION: 06/09/2016 Cardiology Consultation DIAGNOSES: 1. Bilateral pulmonary embolus. 2. Hypotension. 3. Atrial fibrillation with rapid ventricular response. 4. Coronary artery disease. 5. Aortic stenosis. 6. Hyperlipidemia. HISTORY OF PRESENT ILLNESS: This is a gentleman who is known to us with a past history of atrial fibrillation. Past history of aortic stenosis, past history of coronary artery disease, presents to the ER with shortness of breath, chest pain, found to have bilateral pulmonary embolus along with a hypotension, systolic blood pressure in the 80s along with atrial fibrillation with rapid ventricular response, heart rate in the 140s. He was placed on dopamine for the hypotension. Thrombolytics are being considered by pulmonary. His EKG is with no gross ischemic changes, abnormal due to the atrial fibrillation with rapid ventricular response. He has received digoxin 0.5 mg IV times 1. PHYSICAL EXAMINATION: GENERAL APPEARANCE: Well-nourished, well-developed, appears stated age. Level of distress, comfortable. PSYCHIATRIC: Mental status, alert, normal affect. Orientation, oriented to time, place and person. EYES: Lids and conjunctiva, noninjected. No discharge, no pallor. ENT: Lips, teeth, gums, normal dentition. Oropharynx, no cyanosis, no pallor. NECK: Carotid arteries, bilateral normal upstroke, no bruits, no thrills. JUGULAR VEINS: No jugular venous pressure or distention. CERVICAL LYMPH NODES: Nontender, nonenlarged. THYROID: Not enlarged. Nontender. No nodules. LUNGS: Respiratory effort, unlabored. CHEST: Normal curvature. No thoracic deformity. No chest wall tenderness. Percussion, resonant. Auscultation, clear. No wheezes, no rales, no rhonchi. CARDIOVASCULAR: Precordial exam, nondisplaced. No heaves or pericardial thrills. Heart is irregularly irregular, tachycardic with atrial fibrillation. Heart sounds, normal S1, normal S2. No S3, no gallop, no rub. Systolic murmur, not heard. Diastolic murmur, not heard. EXTREMITIES: No cyanosis, no edema. Peripheral pulses, full and equal in all extremities, except as noted. No bruits appreciated. ABDOMEN: Soft, nondistended. Normal aorta. No bruit. Nontender. No masses. Liver, nontender, no hepatomegaly. Spleen, nontender, no splenomegaly. MUSCULOSKELETAL: No joint tenderness. No joint swelling. No erythema. NEUROLOGICAL: Normal gait, normal strength, normal tone. SKIN: Warm and dry. OVERALL IMPRESSION: 1. Atrial fibrillation. At this point, with his low blood pressure secondary CONSULT REPORT [id number] FERNY WILLIAM to the pulmonary embolus, digoxin is the agent of choice. We will continue the digoxin at 0.25 q.4 hours for at least 4 doses to continue treatment of the atrial fibrillation. 2. Aortic stenosis. He is stable from the standpoint of the aortic stenosis. Obviously, this complicates issues more with his hypotension, but the last echo showed aortic valve area of approximately 1.0, did not appear to be critical aortic stenosis; hence, no treatment or further workup is necessary for this at this time. 3. Ischemic heart disease. He has no ischemic changes on EKG. The chest pain is from the pulmonary embolus, do not think that he has active ischemic heart disease; hence, no other workup or treatment is necessary for this. From a cardiac standpoint, we will center on rate control of the atrial fibrillation with digoxin therapy. TRANSINT:[id number] Voice Confirmation ID: [id number] DOCUMENT ID: [id number] REGINALDO HEBERT MD at 1623 CC: [id number] DICTATION DATE: 06/09/16 1344 FOOT AND ANKLE SURGEON: 06/09/16 1419 ADM IN [place] [id number] [place] [id number]
--- NOTE | 2016-06-15 16:23 | EC ---
PATIENT:FERNY WILLIAM DATE OF SERVICE: 06/09/16 SEX: M MEDICAL RECORD: [id number] DATE OF : [birth year] LOCATION:D.M2 D.211 AGE OF PATIENT: 85 ADMISSION DATE: 06/09/16 REFERRING PHYSICIAN: INTERPRETING PHYSICIAN: REGINALDO REEVES MD ECHOCARDIOGRAM REPORT ECHO CHARGES 4 ECHO COMPLETE CLINICAL DIAGNOSIS: MULTIPLE PE'S ECHOCARDIOGRAPHIC MEASUREMENTS (adult normal given) AC root (d.<3.7cm) 3.7 LV Septum d (<1.2 cm> 1.3 Valve Excursion 1.0 LV Septum (systole) 1.4 Left Atria (s.<4.0cm> 4.7 LVPW d(<1.2cm) 1.3 RV (d.<2.3cm) 4.5 LVPW (sytole) 1.6 LV diastole(<5.6CM) 5.6 MV E-F(>70mm/sec) LV systole 4.6 LVOT Diameter 1.1 MV exc.(>10mm) 1.2 Est.ejection fraction (50-75%) Pericardial Effusion N DOPPLER: LVIT A 77.0 E LA RVSP 38 LVOT 131 AOP1/2T Asc. Ao 302 RVOT 46 RA PA 196 AV Gradient Peak 36.44 AV Mean 18.49 AV Area 1.0 MV Gradient Peak 2.42 MV Mean 0.94 MV Area COMMENTS: Beverage Server: Nancy DONALDSON Bookstore Manager:Emil Reeves TAPE# PACS DATE OF SERVICE: 06/09/2016 Echocardiogram FINDINGS: 1. Left ventricular chamber size is upper limits of normal. Left ventricular systolic function is mild to moderately reduced, overall ejection fraction of 35% to 40%. 2. Left atrium is enlarged at 4.7 cm. Right atrium and right ventricular chamber sizes are moderately dilated. ECHOCARDIOGRAM REPORT [id number] FERNY WILLIAM 3. Valvular structures: Aortic valve demonstrates moderate calcific aortic stenosis. Valve area calculates to 1.0 cm-squared and there is a gradient of 36 mm across the valve. The remaining valvular structures have normal structure and motion. 4. Doppler interrogation elsewise reveals moderate mitral regurgitation, moderate tricuspid regurgitation, no other valvular insufficiency or stenosis. Pulmonary systolic pressure is estimated at 38 mmHg. 5. No evidence of pericardial effusion or left ventricular thrombus. TRANSINT:[id number] Voice Confirmation ID: [id number] DOCUMENT ID: [id number] REGINALDO REEVES MD at 1623 CC: [id number] DICTATION DATE: 06/09/16 1644 SHEEP AND WHEAT FARMER: 06/09/16 2217 ADM IN [facility] [address] [place] [address]
--- NOTE | 2016-06-15 16:30 | NUR ---
PATIENT FSBS 104, NO INSULIN REQUIRED. PATIENT DENIES ANY NEEDS OR PAIN. AT BEDSIDE. BED LOW AND LOCKED. CPOC
--- NOTE | 2016-06-15 19:25 | NUR ---
RECEIVED REPORT, 07-22OX, IV-L HAND-HEPRIN @15 INCREASED TO 16 PER PROTOCOL, [id number], DENIES ANY NEEDS, CALL LIGHT IN REACH, BED IS LOW, BED ALARM IS ON
[2016-06-15 19:51] VITALS: BP 132/87
--- NOTE | 2016-06-16 03:17 | NUR ---
SALES DONOR RECRUITMENT REPRESENTATIVE GIVING BED BATH
[2016-06-16 04:00] VITALS: BP 119/86
--- NOTE | 2016-06-16 05:30 | NUR ---
CALL LIGHT IN REACH. WILL CONTINUE WITH PLAN OF CARE.
[2016-06-16 05:34] LABS: BASOPHILS 0.1 % (0.0-2.0); EOSINOPHILS 1.1 % (0-7); HEMATOCRIT 35.5 % (42.0-54.0); IMMATURE GRANULOCYTES 0.4 % (0-5); LYMPHOCYTES 24.1 % (15-50); MCH 31.3 pg (26.0-34.0); MCHC 33.8 g/dL (31.0-37.0); MCV 92.7 fL (80.0-100.0); MEAN PLATELET VOLUME 11.1 fL (7.4-10.4); MONOCYTES 6.3 % (2-11); PLATELET COUNT 122 10x3/uL (130-400); RBC 3.83 10x6/uL (4.20-6.10); RDW 16.5 % (11.5-14.5); WBC 8.5 10x3/uL (4.8-10.8)
--- NOTE | 2016-06-16 07:04 | NUR ---
Nutrition follow-up: Pt still on a full liquid diet with po intake ~75% average of meals Labs reviewed +BM Wt: 193# Will continue to provide food choices and honor food preferences. RDN will order Glucerna Shake with meals. Will check with phyisican re: advancing diet to consistent CHO as tolerated. RDN following.
--- NOTE | 2016-06-16 07:30 | NUR ---
ASSESSMENT COMPLETED. TELEMERTY SHOWS AFIB CONTROLLLED. O2 AT 11 L/M PER OXOMIZER. HEPARIN TO LEFT HAND IV AT 16 UNITS AN HOUR. DENIES ANY NEEDS. CALL LIGHT IN REACH WITH SR UP
[2016-06-16 09:01] VITALS: BP 126/79
--- NOTE | 2016-06-16 11:05 | NUR ---
RESTING QUIETLY. RESP WITH EASE WITH OXIMIZER ON. WARM AND DRY. WILL CONTINUE TO MONITOR.
[2016-06-16 13:09] VITALS: BP 124/90
--- NOTE | 2016-06-16 16:10 | NUR ---
LYING QUIETLY WITH FAMILY AT BEDSIDE. NO NEEDS VOICED. SR UP WITH CALL LIGHT IN REACH. WILL MONITOR
[2016-06-16 16:43] VITALS: BP 143/91
--- NOTE | 2016-06-16 19:18 | NUR ---
RECEIVED REPORT, [id number], , [id number], DENIES ANY NEEDS, CALL LIGHT IN REACH, BED IS LOW, BED ALARM ON
[2016-06-16 21:00] VITALS: BP 150/92
[2016-06-17 00:42] VITALS: BP 137/86
--- NOTE | 2016-06-17 04:47 | NUR ---
SLEEPING,CALL LIGHT IN REACH, BED ALARM ON,
--- NOTE | 2016-06-17 04:59 | NUR ---
PT RESTING WITHOUT C/O OR DISTRESS NOTED. CALL LIGHT WITHIN REACH. WILL CONT TO MONITOR.
[2016-06-17 07:18] VITALS: BP 112/65
[2016-06-17 07:26] VITALS: BP 112/65
[2016-06-17 07:26] LABS: INR 1.17 (0.85-1.17); PROTIME 14.8 SECONDS (11.6-15.0)
--- NOTE | 2016-06-17 07:45 | NUR ---
PT ASSESSMENT COMPLETE AWAKE AND ALERT HEPARIN INFUSING PER PROTOCOL AT 1600 UNITS PER HR. PTT TO BE DRAWN THIS AM WILL MONITOR. O2 PER OXIMIZER AT 11LPM. TELEMETERY SHOWS CONTROLLED AFIB AT RATE OF 71 AT THIS TIME. PIV PATENT TO LEFT HAND
--- NOTE | 2016-06-17 09:40 | NUR ---
PTT RESULTS OF 178.2 HEPARIN GTT OFF PER PROTOCOL X 1 HR WILL MONITOR.
--- NOTE | 2016-06-17 10:45 | NUR ---
HEPARIN RESTARTED AT THIS TIME PER PROTOCOL AT 1300 UNITS PER HR PER PROTOCOL PTT TO BE DRAWN IN 6 HRS. PT AWAKE AND ALERT SPOUSE AT BEDSIDE AT THIS TIME. EYES BILATERALLY WITH REDNESS AND YELLOW DISCHARGE NOTED
[2016-06-17 11:30] VITALS: BP 136/68
[2016-06-17 15:21] VITALS: BP 165/75
--- NOTE | 2016-06-17 16:34 | NUR ---
SITTING UP IN BED HOB 60 DEGREES O2 PER OXYMIZER NOTED SPOUSE AT BEDSIDE. CONTINUES HEPARIN THERAPY NO DISTRESS NOTED
--- NOTE | 2016-06-17 19:16 | NUR ---
PT AWAKE AND ALERT NO DISTRESS
[2016-06-17 20:30] VITALS: BP 115/67
--- NOTE | 2016-06-17 21:15 | NUR ---
ALERT/AWAKE WATCHING TV. ADMIN SCHED MEDS. CHECKED BS AT 111. ADMIN EYE DROPS. APPLIED WARM WASH CLOTH TO EYES AND CLEAN THE MUCUS AND CRUST FROM HIS EYES. STATED HIS EYES FELT MUCH BETTER. ORIENTED TO CALL LIGHT FOR ANY NEEDS OR DISCOMFORTS.
[2016-06-18 00:10] VITALS: BP 120/75
--- NOTE | 2016-06-18 01:00 | NUR ---
PTT 128.4. HELD HEPARIN DRIP FOR 30 MIN. ADJUSTED DRIP RATE FROM 12 ML/HR TO 10 ML/HR PER HEPARIN PROTOCOL. NEXT LAB CHECK AT 0400.
[2016-06-18 04:20] VITALS: BP 121/82
--- NOTE | 2016-06-18 06:05 | NUR ---
AWAKE WATCHING TV. ADMIN SCHED MED WITH SIPS OF WATER. DENIES ANY NEEDS.
[2016-06-18 07:35] VITALS: BP 113/78
[2016-06-18 08:00] VITALS: BP 122/80
--- NOTE | 2016-06-18 08:00 | NUR ---
ALERT AND ORIENTED. SITTING UP IN BED. EYES EDEMATOUS WITH YELLOW DRAINAGE. DENIES SOB. COMPLAINS OF LOWER EXTREMITY PAIN BILATERALLY. CONTROLLED A-FIB ON TELEMETRY 77bpm. PTT-92. DECREASE HEPARIN DRIP TO 9UNIT/HR. ORDER PTT IN 6HRS. BED LOCKED AND LOW. CALL LIGHT IN REACH. TWO SIDERAILS UP.
[2016-06-18 08:16] LABS: BASOPHILS 0 % (0.0-2.0); EOSINOPHILS 0.8 % (0-7); HEMATOCRIT 35.9 % (42.0-54.0); IMMATURE GRANULOCYTES 0.1 % (0-5); LYMPHOCYTES 27.2 % (15-50); MCH 31.3 pg (26.0-34.0); MCHC 33.4 g/dL (31.0-37.0); MCV 93.7 fL (80.0-100.0); NEUTROPHILS 61.9 % (40-80); PLATELET COUNT 125 10x3/uL (130-400); RBC 3.83 10x6/uL (4.20-6.10); RDW 16.5 % (11.5-14.5); WBC 7.1 10x3/uL (4.8-10.8)
[2016-06-18 08:25] LABS: INR 1.17 (0.85-1.17); PROTIME 14.8 SECONDS (11.6-15.0)
[2016-06-18 08:27] LABS: APTT 92.1 SECONDS (22.8-39.4)
[2016-06-18 11:20] VITALS: BP 115/82
[2016-06-18 15:28] VITALS: BP 113/69
--- NOTE | 2016-06-18 16:30 | NUR ---
SITTING UP IN BED. AT BEDSIDE. PTT 53. INCREASE HEPARIN DRIP TO 10UNITS/HR PER PROTOCOL. NO CHANGE. CONTINUE PLAN OF CARE AND SAFETY PRECAUIONS.
[2016-06-18 22:47] LABS: INR 1.11 (0.85-1.17); PROTIME 14.2 SECONDS (11.6-15.0)
[2016-06-18 22:48] LABS: APTT 84.1 SECONDS (22.8-39.4)
--- NOTE | 2016-06-18 23:48 | NUR ---
NURSE ROUNDS 21:30 - PT SITTING UP IN BED, AWAKE, ALERT, ORIENTED WITH EXCEPTION TO MILD CONFUSION WITH TIME. PT DENIED ANY NEEDS. PTT @ 22:00 WAS 84.1 REQUIRING NO CHANGE PER HEPARIN PROTOCOL. HEPARIN GTT REMAINS INFUSING AT 10MLS/OI=9732 UNITS/HR. CONTINUE TO MONITOR PT CLOSELY AND FREQUENTLY. BED LOW, CALL LIGHT IN REACH (REVIEWED HOW TO USE CALL LIGHT WITH PATIENT), SIDE RAILS X 2, HOB 30 DEGREES.
[2016-06-19] VITALS: BP 109/72
--- NOTE | 2016-06-19 06:17 | NUR ---
PT AWAKE, ALERT, ORIENTED X 3, DISORIENTED TO TIME. PT DENIES ANY NEEDS, AND DID TAKE HIS ORDERED PO MEDICATION THIS AM WITHOUT ANY DIFFICULTY. CONTINUE TO MONITOR. BED LOW, CALL LIGHT IN REACH, SIDE RAILS X 2, HOB 30 DEGREES.
[2016-06-19 07:00] LABS: INR 1.17 (0.85-1.17); PROTIME 14.8 SECONDS (11.6-15.0)
--- NOTE | 2016-06-19 07:00 | NUR ---
ALERT AND ORIENTED X3. RESTING IN BED. [place]. CONTROLLED A-FIB 70bpm ON TELEMETRY. PTT 116.3. DECREASE HEPARIN 200 UNITS PER HEPARIN PROTOCOL. BED LOCKED AND LOW. CALL LIGHT IN REACH. CONTINUE PLAN OF CARE.
[2016-06-19 07:06] LABS: APTT 116.3 SECONDS (22.8-39.4)
[2016-06-19 08:45] VITALS: BP 107/69
--- NOTE | 2016-06-19 10:34 | NUR ---
Rehab Prescreening Consult recieved and the chart has been reviewed. He is an excellent rehab candidate, and expresses interest in the program. He is still on 10 liters of 02. The rehab MD prefers a patient be weaned down to 2-3 liters or the amount of 02 a patient will discharge home on if any. The JOSE ROBERTO Ash has been made aware. Beba Pearl RN Clinical Liaison, Rehab
[2016-06-19 12:58] LABS: INR 1.22 (0.85-1.17); PROTIME 15.3 SECONDS (11.6-15.0)
--- NOTE | 2016-06-19 13:00 | NUR ---
PTT 61. INCREASE HEPARIN 100 UNITS PER HEPARIN PROTOCOL. OOB WITH PHYSICAL THERAPY. CONTINUE PLAN OF CARE. LABS ORDERED IN 6HRS FOR PTT, PT, INR.
[2016-06-19 13:02] LABS: APTT 61.2 SECONDS (22.8-39.4)
[2016-06-19 13:14] VITALS: BP 122/79
[2016-06-19 17:04] VITALS: BP 121/73
[2016-06-19 19:01] LABS: APTT 59.8 SECONDS (22.8-39.4); INR 1.2 (0.85-1.17); PROTIME 15.1 SECONDS (11.6-15.0)
[2016-06-19 21:47] VITALS: BP 115/66
--- NOTE | 2016-06-19 21:54 | NUR ---
PT LYING IN BED, EYES CLOSED, RESPIRATIONS EVEN AND UNLABORED. PT IS EASILY ROUSABLE TO VERBAL STIMULI. PT DENIES ANY NEEDS AT THIS TIME.CONTINUE TO MONITOR CLOSELY. BED LOW, HOB 30 DEGREES, CALL LIGHT IN REACH, SIDE RAILS X 2, BED ALARM ON.
[2016-06-20 02:11] VITALS: BP 116/71
[2016-06-20 05:29] VITALS: BP 129/65
[2016-06-20 06:08] LABS: INR 1.35 (0.85-1.17); PROTIME 16.6 SECONDS (11.6-15.0)
[2016-06-20 08:45] VITALS: BP 102/61
--- NOTE | 2016-06-20 09:38 | NUR ---
Rehab Note- The patient continues on 10L High flow oxygen at this time. Will continue to follow. Carolann Prince RN Clinical Liaison, Rehab Care/[place]
[2016-06-20 11:59] VITALS: BP 94/62
[2016-06-20 13:21] LABS: INR 1.31 (0.85-1.17); PROTIME 16.1 SECONDS (11.6-15.0)
[2016-06-20 13:25] LABS: APTT 58.5 SECONDS (22.8-39.4)
[2016-06-20 16:13] VITALS: BP 97/60
--- NOTE | 2016-06-20 17:32 | NUR ---
Patient Name: FERNY WILLIAM Encounter No: [id number] : 1930 Primary Insurance: MEDICARE A & B Anticipated DC Date: Planned Disposition: Inpatient Rehab Facility External Planned Provider: [facility] DCP follow-up note: CM FOLLOWED UP WITH PT AND SPOUSE IN ROOM TO DISCUSS DISCHARGE PLANNING; PT AND SPOUSE BOTH WOULD LIKE TO BE CONSIDERED FOR INPATIENT REHAB AT [place] FOR DISCHARGE. CM WAITING FOR MEDICAL STABILITY PT'S OXYGEN REQUIREMENTS ARE STILL VERY HIGH. INPATIENT REHAB IS FOLLOWING FOR POSSIBLE REHAB SERVICES AND WILL REEVALUATE WHEN PT'S OXYGEN NEEDS CAN BE MET IN THE INPATIENT REHAB. Thai Ash, CASE MANAGEMENT
[2016-06-20 20:03] VITALS: BP 114/65
--- NOTE | 2016-06-21 02:53 | NUR ---
NURSE ROUNDS 19:30 - PT AWAKE, ALERT, ORIENTED X 3, DISORIENTED TO TIME. PT DENIES ANY NEEDS. CONTINUE TO MONITOR CLOSELY.
[2016-06-21 05:07] VITALS: BP 111/61
[2016-06-21 06:07] LABS: BASOPHILS 0 % (0.0-2.0); EOSINOPHILS 0.7 % (0-7); HEMATOCRIT 33.1 % (42.0-54.0); HEMOGLOBIN 11.1 g/dL (13.5-17.5); IMMATURE GRANULOCYTES 0.1 % (0-5); LYMPHOCYTES 22.6 % (15-50); MCHC 33.5 g/dL (31.0-37.0); MCV 92.5 fL (80.0-100.0); MEAN PLATELET VOLUME 10.8 fL (7.4-10.4); MONOCYTES 8.7 % (2-11); NEUTROPHILS 67.9 % (40-80); RBC 3.58 10x6/uL (4.20-6.10); RDW 15.8 % (11.5-14.5); WBC 6.8 10x3/uL (4.8-10.8)
[2016-06-21 06:15] LABS: PROTIME 18.8 SECONDS (11.6-15.0)
[2016-06-21 06:22] LABS: INR 1.58 (0.85-1.17); PLATELET COUNT 157 10x3/uL (130-400)
[2016-06-21 06:47] LABS: CALC OSMOLALITY 279 mosm/kg (275-300); CHLORIDE - SERUM 102 mmol/L (98-107); CREATININE - SERUM 0.9 mg/dL (0.6-1.3); GLUCOSE 119 mg/dL (74-106); POTASSIUM - SERUM 3.7 mmol/L (3.5-5.1); SODIUM 139 mmol/L (136-145); UREA NITROGEN 15 mg/dL (7-18); eGFR NON AFRICAN AMERICAN 85 mL/min (90-120)
--- NOTE | 2016-06-21 07:53 | NUR ---
ASSESSMENT DONE. PT A/O. WATCHING TV. NO DISTRESS NOTED. DENIES NEEDS. CALL LIGHT WITH IN REACH. WILL CONT. TO MONITOR.
[2016-06-21 08:25] VITALS: BP 101/66
--- NOTE | 2016-06-21 09:31 | NUR ---
RESP UL ON OXIMIZER. IV PATENT. CALL LIGHT IN REACH. WILL CONT. PLAN OF CARE.
[2016-06-21 12:49] VITALS: BP 150/68
[2016-06-21 18:09] VITALS: BP 115/69
--- NOTE | 2016-06-21 18:21 | NUR ---
PT A/A/O WATCHING TV. NO DISTRESS NOTED. DENIES NEEDS. CALL LIGHT WITH IN REACH. WILL CONT. TO MONITOR.
[2016-06-21 19:45] VITALS: BP 135/65
[2016-06-22 02:05] VITALS: BP 128/70
--- NOTE | 2016-06-22 02:20 | NUR ---
LYING IN BED WITH CALL LIGHT IN REACH. WILL CONTINUE WITH PLAN OF CARE.
[2016-06-22 02:57] LABS: HEMOGLOBIN 10.8 g/dL (13.5-17.5); LYMPHOCYTES 26.2 % (15-50); MCH 31.7 pg (26.0-34.0); MCHC 34.8 g/dL (31.0-37.0); MCV 90.9 fL (80.0-100.0); MEAN PLATELET VOLUME 9.1 fL (7.4-10.4); NEUTROPHILS 63.4 % (40-80); PLATELET COUNT 178 10x3/uL (130-400); RBC 3.41 10x6/uL (4.20-6.10); RDW 16.2 % (11.5-14.5); WBC 6.3 10x3/uL (4.8-10.8)
[2016-06-22 03:04] LABS: CALC OSMOLALITY 272 mosm/kg (275-300); CALCIUM 8.8 mg/dL (8.5-10.1); CARBON DIOXIDE 32.9 mmol/L (21.0-32.0); CHLORIDE - SERUM 99 mmol/L (98-107); CREATININE - SERUM 0.9 mg/dL (0.6-1.3); GLUCOSE 137 mg/dL (74-106); POTASSIUM - SERUM 3.8 mmol/L (3.5-5.1); SODIUM 135 mmol/L (136-145); UREA NITROGEN 14 mg/dL (7-18); eGFR NON AFRICAN AMERICAN 85 mL/min (90-120)
[2016-06-22 03:05] LABS: INR 1.89 (0.85-1.17); PROTIME 21.7 SECONDS (11.6-15.0)
[2016-06-22 03:06] LABS: APTT 115.2 SECONDS (22.8-39.4)
[2016-06-22 05:19] VITALS: BP 126/70
--- NOTE | 2016-06-22 05:54 | NUR ---
PTT 72.5, THERAPEUTIC WILL REDRAW IN AM
--- NOTE | 2016-06-22 07:57 | NUR ---
ASSESSMENT DONE. PT A/O DISORIENTED TO TIME. WATCHING TV. NO DISTRESS NOTED. DENIES NEEDS. CALL LIGHT WITH INREACH. WILL CONT. TO MONITOR.
[2016-06-22 08:50] VITALS: BP 107/63
[2016-06-22] MEDS ORDERED: COUMADIN5 MG PO (08:53)
[2016-06-22] MEDS ORDERED: GENTAMICIN 0.3 %5 ML EACH EYE (08:54)
[2016-06-22] MEDS ORDERED: MIRALAX17 GM PO (08:55)
[2016-06-22] MEDS ORDERED: NORVASC5 MG PO (08:56)
[2016-06-22] MEDS ORDERED: PROTONIX40 MG PO (08:56)
[2016-06-22] MEDS ORDERED: MINERAL OIL25 ML PO (08:58)
[2016-06-22] MEDS ORDERED: LANOXIN125 MCG PO (08:59)
--- NOTE | 2016-06-22 09:13 | NUR ---
UP TO CHAIR. CALL LIGHT IN REACH. WILL CONT. PLAN OF CARE.
--- NOTE | 2016-06-22 11:45 | NUR ---
Patient Name: FERNY WILLIAM Encounter No: [id number] : 1930 Primary Insurance: MEDICARE A & B Anticipated DC Date: 06-22-2016 Planned Disposition: Inpatient Rehab Facility External Planned Provider: [facility] INPAT[facility] DCP follow-up note: KENDAL NANCE SPOKE TO LAK[place] OF INPATIENT REHAB, THEY PLAN TO ACCEPT PT TODAY FOR REHAB. PT NOTIFIED, IN AGREEMENT WITH DISCHARGE TO INPATIENT REHAB. IMPORTANT MESSAGE FROM [employer] PROVIDED AND EXPLAINED. [facility] INPATIENT [facility]HAB TO CONTACT MED 2 NURSE WITH ROOM NUMBER WHEN READY TO ACCEPT PT AND NURSE REPORT. Thai Ash, CASE MANAGEMENT
[2016-06-22 12:27] VITALS: BP 112/64
--- NOTE | 2016-06-22 12:30 | NUR ---
PT SITTING IN CHAIR AT BED SIDE. IN ROOM. NO DISTRESS NOTED. DENIES NEEDS AT THIS TIME. CALL LIGHT WITH IN REACH. WILL CONT. TO MONITOR.
--- NOTE | 2016-06-22 12:50 | NUR ---
Nutrition Follow Up: Chart reviewed. Pt to go to inpatient rehab. Diet: Diabetic; Glucerna with meals PO intake: 72% (9 meal avg) Wt stable +BM 06/19/16 I>O Labs noted - Na low; Glucose elevated Meds: Humalog, Coumadin Pt with good po intake at this time. Rec continue current diet, supplement regimen. RD following.
[2016-06-22 16:28] VITALS: BP 113/67
--- NOTE | 2016-06-22 17:17 | NUR ---
REPORT CALLED TO CAIT AT [facility]. PT'S IV SALINE LOCKED. TELEMETRY REMOVED. WILL MOVE PT AFTER HE FINISHES SUPPER.
--- NOTE | 2016-06-22 17:30 | NUR ---
D/C INSTRUCTIONS GIVEN TO PT AND SPOUSE.
--- NOTE | 2016-06-22 18:07 | NUR ---
PT TAKEN DOWN TO REHAB VIA WC
[2016-06-22] MEDS ORDERED: ARTIFICIAL TEAR15 ML EACH EYE (20:31)
[2016-06-22] MEDS ORDERED: SALINE FLUSH10 ML IV (20:32)
--- NOTE | 2016-07-05 09:12 | CN ---
PATIENT NAME:FERNY BERRY MEDICAL RECORD: [id number] : 34 LOCATION:D. D.2111 ADMIT DATE: 06/09/16 ACCOUNT: [id number] CONSULTING PHYSICIAN: GRADY CHRISTIAN MD REFERRING PHYSICIAN: ANGIE LIMA MD DATE OF CONSULTATION: 06/09/2016 CONSULT REQUESTING PHYSICIAN: Reginaldo Reeves MD REASON FOR CONSULTATION: 1. Submassive pulmonary embolism. 2. Syncopal episode. HISTORY OF PRESENT ILLNESS: Mr. Berry is an 85-year-old gentleman. According to the , this morning, he fell down while he was brushing his teeth and the patient lost consciousness for a few seconds and the patient was brought into the ER. Workup showed that the patient was in atrial fibrillation and the CTA of the chest showed bilateral pulmonary emboli. His blood pressure was low from 88-90 systolic blood pressure. His blood pressure in Dr. Reeves's office was 110. Now, the patient is awake and alert. Denies any chest pain. He does have shortness of breath. He is feeling a little bit weak. Two weeks ago, the patient drove to [place] back and forth, otherwise, he do not have any other activities. PAST MEDICAL HISTORY: 1. Coronary artery disease. 2. Aortic stenosis. 3. Hyperlipidemia. ALLERGIES: There are no known drug allergies. PRESENT MEDICATIONS: On [employer] was reviewed. PERSONAL AND SOCIAL HISTORY: The patient is . He lives with his . PAST SURGICAL HISTORY: He has a knee surgery. SOCIAL HISTORY: He is a nonsmoker and nondrinker. FAMILY HISTORY: Noncontributory. PHYSICAL EXAMINATION: GENERAL: Now, the patient is lying comfortably. He is not in acute distress. VITAL SIGNS: The blood pressure is 104/67, pulse is 135 and irregular, temperature 97.3 and SPO2 is 94% on 3 liters nasal cannula. HEENT: Conjunctivae are pink. Sclerae nonicteric. NECK: Supple, no JVD. CHEST: Chest excursion is minimal on both sides. There are bibasilar crackles. No wheezing. HEART: Rhythm regular, normal sound, no murmur. ABDOMEN: Soft, bowel sounds present. No hepatosplenomegaly. RECTAL: Deferred. EXTREMITIES: No cyanosis, no clubbing, no pedal edema. SKIN: Warm, normal turgor. CENTRAL NERVOUS SYSTEM: The patient is awake and alert. There is no obvious CONSULT REPORT [id number] FERNY BERRY cranial nerve abnormality. The gait was not tested. LABORATORY DATA: CBC: WBC 13.1, hemoglobin 13.8, hematocrit 42.1 and the platelet count 123. Chemistry: Sodium 141, potassium 2.7, AST 59, ALT is 69, BUN 25 and creatinine is 1.3. IMPRESSION: 1. Syncopal episode, most likely secondary to the pulmonary embolism and atrial fibrillation. 2. Submassive pulmonary embolism with mild right ventricular strain with a PA pressure of 38. 3. Hypotension secondary to pulmonary embolism. 4. Atrial fibrillation, most likely secondary to pulmonary embolism. 5. Coronary artery disease with elevated cardiac enzyme. 6. Aortic stenosis and mild elevation of the liver enzymes. RECOMMENDATION: 1. We will continue the Lovenox as the patient is hemodynamically stable at this stage. Start on Xarelto after 2-3 days when the patient is stable. 2. We will follow labs and chest radiograph in the morning. We will continue supplemental oxygen. Discuss with Dr. Carl, he does not have any DVT at this point and so he does not need any [place] filter. Dr. Reeves, once again thanks for allowing me to care of Mr. eBrry. TRANSINT:[id number] Voice Confirmation ID: [id number] DOCUMENT ID: [id number] GRADY CHRISTIAN MD at 0912 CC: REGINALDO REEVES MD [id number] DICTATION DATE: 06/09/16 184 MARINE TOWER OPERATOR: 06/09/169 DIS IN 06/22/16 [id number] [place] [address]
== END 2016-06-22 18:08 | DRG 175 ==
LOC: D.ER 09:26 → D.M2 12:00 → D.ICU 12:00 → D.M2 06-12 17:03
PROVIDERS: Emergency Medicine; Internal Medicine Pulmonary Disease; ADMIT Family Medicine
DX: I26.99 Other pulmonary embolism without acute cor pulmonale (principal); J96.01 Acute respiratory failure with hypoxia; K57.91 Diverticulosis of intestine, part unspecified, without perforation or abscess with bleeding; I50.22 Chronic systolic (congestive) heart failure; I95.9 Hypotension, unspecified; I25.10 Atherosclerotic heart disease of native coronary artery without angina pectoris; I48.91 Unspecified atrial fibrillation; I08.3 Combined rheumatic disorders of mitral, aortic and tricuspid valves; K59.00 Constipation, unspecified; E78.5 Hyperlipidemia, unspecified; I11.0 Hypertensive heart disease with heart failure; I27.2 Other secondary pulmonary hypertension; F03.90 Unspecified dementia, unspecified severity, without behavioral disturbance, psychotic disturbance, mood disturbance, and anxiety; Z79.01 Long term (current) use of anticoagulants; D64.9 Anemia, unspecified

== ENCOUNTER 2016-06-22 18:50 | Inpatient (IN) | payer MEDICARE, OTHER ==
[~2016-06-22] VITALS: Ht 175.3 cm; Wt 130.2 kg
[~2016-06-22 18:50] MED LIST: ARICEPT10 MG PO; BAYER CHEWABLE81 MG PO; COUMADIN5 MG PO; ENULOSE10 G/15 ML PO; GENTAMICIN 0.3 %5 ML EACH EYE; LANOXIN125 MCG PO; LINZESS145 MCG PO; LIPITOR40 MG PO; MINERAL OIL25 ML PO; MIRALAX17 GM PO; NAMENDA XR28 MG PO; NIASPAN500 MG PO; NORVASC5 MG PO; PAROXETINE HCL10 MG PO; POTASSIUM CHLO10 ME1 PO; PROTONIX40 MG PO
--- NOTE | 2016-06-22 19:00 | NUR ---
PATIENT IN BED. PRESENT.
[2016-06-22 20:12] VITALS: BMI 42.5
[2016-06-22] MEDS ORDERED: ARTIFICIAL TEAR15 ML EACH EYE (20:31)
[2016-06-22] MEDS ORDERED: SALINE FLUSH10 ML IV (20:32)
--- NOTE | 2016-06-22 20:40 | NUR ---
RESTING IN BED, EYES CLOSED. APPEARS COMFORTABLE.
--- NOTE | 2016-06-22 22:00 | NUR ---
ATTEMPTING OOB TO BR. FSR ASSISTED PATIENT BACK INTO BED AND I PROVIDED HIM WITH A URINAL AND INSTRUCTIONS ON ITS USE.
[2016-06-22 22:54] VITALS: BP 108/64
--- NOTE | 2016-06-22 23:20 | NUR ---
GIVING PATIENT SCHEDULED HS MEDS AND CONTINUING WITH ASSESSMENT. HELD MIRALAX PATIENT HAD TO BED CLEANSED FROM SMALL URINARY AND SMALL LIQUID BM INCONTINENCE PRIOR TO TAKING HIS MEDS. APPLIED BUTT PASTE TO REDDENED BLANCHABLE TISSUE OVER CENTRAL BUTTOCKS.
--- NOTE | 2016-06-23 00:15 | NUR ---
MEDS, ADMISSION HISTORY AND ADMISSION ASSESSMENT COMPLETE. PATIENT STATED HE WANTED HIS PRESENT TO SIGN HIS ADMISSION DOCUMENTS.
--- NOTE | 2016-06-23 02:15 | NUR ---
REMAINS IN BED, RESTING QUIETLY, EYES CLOSED.
--- NOTE | 2016-06-23 04:15 | NUR ---
RESTING IN BED, EYES CLOSED. APPEARS COMFORTABLE.
--- NOTE | 2016-06-23 06:08 | NUR ---
PT AWAKE. TOOK SCHEDULED PO PROTONIX. ONLY VAGUELY REMEMBERED ME FROM HIS ADMISSION ASSESSMENT AROUND MIDNIGHT.
--- NOTE | 2016-06-23 07:20 | NUR ---
AWAKE,RESTING QUIETLY IN BED.DENIES PAIN AND NEEDS.ASSESSMENT COMPLETED.IS ORIENTED TO PERSON AND HOSPITAL BUT DISORIENTED TO YEAR ,MONTH.WILL CONTINUE WITH PLAN OF CARE.CL IN EASY REACH,BED IN LOW POSITION.BED ALARM ON AND WORKING.
[2016-06-23 08:14] LABS: BASOPHILS 0.2 % (0.0-2.0); EOSINOPHILS 1.2 % (0-7); HEMOGLOBIN 10.9 g/dL (13.5-17.5); LYMPHOCYTES 25.1 % (15-50); MCH 30.6 pg (26.0-34.0); MCV 92.7 fL (80.0-100.0); MEAN PLATELET VOLUME 10.3 fL (7.4-10.4); MONOCYTES 7.7 % (2-11); NEUTROPHILS 65.8 % (40-80); PLATELET COUNT 185 10x3/uL (130-400); RBC 3.56 10x6/uL (4.20-6.10); RDW 15.9 % (11.5-14.5); WBC 5.7 10x3/uL (4.8-10.8)
[2016-06-23 08:23] LABS: INR 2.01 (0.85-1.17); PROTIME 22.8 SECONDS (11.6-15.0)
[2016-06-23 08:36] LABS: CALC OSMOLALITY 278 mosm/kg (275-300); CALCIUM 9.4 mg/dL (8.5-10.1); CARBON DIOXIDE 29.6 mmol/L (21.0-32.0); CHLORIDE - SERUM 101 mmol/L (98-107); CREATININE - SERUM 0.8 mg/dL (0.6-1.3); GLUCOSE 121 mg/dL (74-106); POTASSIUM - SERUM 3.6 mmol/L (3.5-5.1); SODIUM 139 mmol/L (136-145); UREA NITROGEN 13 mg/dL (7-18); eGFR NON AFRICAN AMERICAN > 90 mL/min (90-120)
[2016-06-23 10:35] VITALS: BP 93/57
[2016-06-23 10:36] VITALS: Ht 175.3 cm; Wt 130.2 kg
--- NOTE | 2016-06-23 11:14 | RHP ---
PATIENT: FERNY WILLIAM MEDICAL RECORD: [id number] ACCOUNT: [id number] LOCATION:[facility]1112 : [birth year] ADMISSION DATE: 06/22/16 REHABILITATION HISTORY AND PHYSICAL EXAMINATION POST ADMISSION PHYSICIAN EXAMINATION Post-admission Physical Exam and History and Physical DATE OF ADMISSION: 06/22/2016 ADMITTING DIAGNOSES: Acute hypoxic respiratory failure, bilateral pulmonary emboli, and pulmonary hypertension. HISTORY OF PRESENT ILLNESS: The patient is an 85-year-old gentleman who was admitted from the Emergency Room on June 09 with a complex medical condition involving bilateral pulmonary emboli, atrial fibrillation with rapid ventricular response, acute hypoxic respiratory failure. He was brushing his teeth the morning of June 09 and reportedly passed out when he lost consciousness for a few moments. The patient states he may have passed out the night before as well. He was brought to the Emergency Room with a systolic blood pressure in the low 90s and high 80s. He was found to have atrial fibrillation with rapid ventricular response in the 140s. His D-dimer was over 20. CT angiogram of the chest showed massive bilateral pulmonary emboli, cardiology and pulmonary were consulted. He received digoxin 0.5 mg times 1. He was placed on dopamine for hypotension. EKG showed no gross ischemic changes, but due to his abnormal atrial fibrillation with rapid ventricular response, he remained in the ICU until June 12. He was moved to telemetry bed. Currently, he is weaned to 3 liters of O2 via nasal cannula. Telemetry shows atrial fibrillation with a controlled rate of 60. He has a subtherapeutic INR of 1.89 and remains on heparin drip per protocol. When his Coumadin level reaches to 2-2.5, he can come off this. Prior to his admit, he was independent with ADLs, mobility without device. Currently, he is moderate to max assist with even simple ADLs and mobility. COMORBIDITIES: Including aortic stenosis, atrial fibrillation with rapid ventricular response, hypotension, ischemic heart disease, hypoxia, hypoglycemia, diabetes, moderate tricuspid and mitral regurgitation, syncope, coronary artery disease, hypertension, hyperlipidemia, anemia, fatigue, weakness, debility and cognitive decline. PAST MEDICAL HISTORY: Significant for vertigo, coronary artery disease, hypertension, hyperlipidemia, aortic stenosis, prostate cancer, constipation, and DJD. PAST SURGICAL HISTORY: Includes surgery on his knee cap back in the 1970s. ALLERGIES: No known drug allergies. CURRENT MEDICATIONS: Include Coumadin 5 mg daily. He is on Paxil 10 mg daily, Protonix 40 mg daily, mineral oil daily, digoxin 0.125 mg daily, Lipitor 40 mg daily, amlodipine 5 mg daily, polyvinyl alcohol drops as needed, polyethylene glycol 17 grams in 8 ounces of water daily b.i.d., niacin 500 mg at bedtime, Namenda 10 mg b.i.d., gentamicin drops and Aricept 10 mg q.6 q.h.s. HABITS: No current alcohol or tobacco use. HISTORY AND PHYSICAL [id number] FERNY WILLIAM FAMILY HISTORY: Noncontributory. SOCIAL HISTORY: The patient would like to return back home to his prior level of functioning and be able to get back to what he was able to do before. REVIEW OF SYSTEMS: GENERAL: Does complain of some weakness. HEENT: Denies cold, cough, or congestion. CARDIOVASCULAR: Denies chest pain. PHYSICAL EXAMINATION: VITAL SIGNS: Stable, afebrile. GENERAL: Morbidly obese gentleman in no acute distress, alert upon exam. HEENT: Normocephalic and atraumatic. Mucosa moist. NECK: Supple. No lymphadenopathy. LUNGS: Clear at this time. HEART: Irregular rate and rhythm. ABDOMEN: Benign. EXTREMITIES: No clubbing, cyanosis or edema. NEUROLOGIC: Intact. LABORATORY DATA: His white count is 5.7, H&H of 11 and 33 and platelet count was 185. His INR is 2.01. Sodium 139, potassium 3.6, BUN and creatinine of 13 and 0.8 and blood sugar was noted to be 121. ASSESSMENT: This is an 85-year-old gentleman admitted to the rehab with a working diagnosis of hypoxic respiratory failure complicated by pulmonary emboli and atrial fibrillation with rapid ventricular response. The patient has potential to make improvement. We instituted the following multidisciplinary therapies including to but not limited to physical, occupational, respiratory, speech, nutritional services, prosthetics and orthotics. Given his complex condition and risk for more complications, rehabilitation services cannot be provided at a lower level of care such as a [facility] facility. PLAN: 1. Admit to [facility] rehab for intensive inpatient therapy to include the following disciplines: A. Physical therapy to improve gait, all transfer skills and bed mobility to a modified independent level. B. Occupational therapy to improve activities of daily living to a modified independent level. C. Case management to assist with discharge planning and placement options. D. Nutrition to assist with nutritional needs. E. Rehabilitation nursing to assist in monitoring the patient's underlying medical conditions and to assist with any type of bowel or bladder management. 2. The patient's current medication and medical care will be continued. 3. The patient will be placed on standard fall precautions. 4. The patient's estimated length of stay is approximately 7-10 days. 5. Discuss this patient during care team staff meeting this week. TRANSINT:[id number] Voice Confirmation ID: [id number] DOCUMENT ID: [id number] HISTORY AND PHYSICAL [id number] FERNY WILLIAM SCOTT MD at 1114 CC: [id number] DICTATION DATE: 06/23/16 0938 OPTIONS TRADER: 06/23/16 1038 [facility] [address] [place] [address]
--- NOTE | 2016-06-23 19:35 | NUR ---
PT WATCHING TV, ASSISTED PT WITH ADJUSTING HIS NASAL CANULA, PT APPRECIATIVE OF HAVING ROOM TO HIMSELF, PT DENIES ANY NEEDS, PT STATES HE IS TIRED AND BELIEVES HIS LEFT ARM IS A LITTLE SORE FROM OVERUSING. PT STATES HE IS GOING TO TRY TO GIVE IT A REST.
[2016-06-23 21:37] VITALS: BP 108/57
--- NOTE | 2016-06-24 01:00 | NUR ---
EMPTIED PT URINAL, RESPIRATIONS REGULAR AND UNLABORED, NO S/S OF ACUTE DISTRESS, READJUSTED PT NASAL CANULA.
--- NOTE | 2016-06-24 04:24 | NUR ---
PT AWAKE, INCONTINENT OF URINE AND SOFT BM, PARTIAL BATH AND LINEN CHANGE, REASSURED PATIENT IT WAS OK. NO ACUTE S/S OF DISTRESS. ZENAIDA PAD ACTIVATED.
[2016-06-24 08:00] VITALS: BP 119/62
--- NOTE | 2016-06-24 09:01 | NUR ---
PATIENT AWAKE/ALERT. SLOW TO SPEACK. SOME CONFUSION NOTED. SLOW THOUGHT PROCESS. CALL LIGHT WITHIN REACH. POISEY ALARM ON
[2016-06-24 09:09] LABS: INR 2.24 (0.85-1.17); PROTIME 24.9 SECONDS (11.6-15.0)
--- NOTE | 2016-06-24 11:00 | NUR ---
PATIENT DOWN IN REHAB ROOM. WORKING WITH PHYSICAL THERAPIST. DENIES ANY PAIN/DISC AT THIS TIME
--- NOTE | 2016-06-24 12:00 | NUR ---
GLUCOSE LEVEL 121. PATIENT IS NOT ON A SLIDING SCALE.
--- NOTE | 2016-06-24 13:00 | NUR ---
IN ROOM, VISING WITH PATIENT. PATIENT DENIES ANY NEEDS AT THIS TIME. POSIEY ALARM ON IN BED. CALL LIGHT WITHIN REACH
--- NOTE | 2016-06-24 15:00 | NUR ---
PATIENT HELPED INTO BATHROOM. MOD ASST TRANSFRER FROM BED TO WHEELCHAIR AND WHEELCHAIR TO TOILET. HAD A LOOSE LARGE BOWEL MOVEMENT.
--- NOTE | 2016-06-24 16:48 | NUR ---
GLUCOSE LEVEL 118. PATIENT IS NOT ON A SLIDING SCALE
--- NOTE | 2016-06-24 19:30 | NUR ---
PT IS RESTING IN BED VISITING WITH FAMILY MEMBERS. ALERT AND ORIENTED X 3. DENIES PAIN OR DISCOMFORT. VSS. 02 IS ON @ 3.5 LPM PER NC. NO SOB NOTED. SR'S ARE UP X 3 IN BED. CALL LIGHT AND BEDSIDE TABLE ARE WITHIN EASY REACH. BED ALARM IS ON.
--- NOTE | 2016-06-24 21:21 | NUR ---
PT IS RESTING QUIETLY IN BED WITH EYES CLOSED. RESPS ARE EVEN AND UNLABORED. NO ACUTE DISTRESS NOTED.
[2016-06-24 21:54] VITALS: BP 112/62
--- NOTE | 2016-06-25 00:01 | NUR ---
PT IS RESTING QUIETLY IN BED WITH EYES CLOSED. RESPS ARE EVEN AND UNLABORED. NO ACUTE DISTRESS NOTED.
--- NOTE | 2016-06-25 03:03 | NUR ---
RESTING IN BED WITH EYES CLOSED.
--- NOTE | 2016-06-25 05:29 | NUR ---
pt pleasantly confused, pt incontinent of urine, urinal emptied. respirations regular and unlabored, moves all extremities, transfers with one. linen changed.
[2016-06-25 06:50] LABS: INR 2.37 (0.85-1.17)
[2016-06-25 07:00] VITALS: BP 119/76
--- NOTE | 2016-06-25 07:48 | NUR ---
PATIENT SITTING UP IN BED TO EAT BREAKFAST. ALERT/ORIENT X4. SLOW THOUGHT PROCESS. CALL LIGHT WITHIN REACH. VOICES NO NEEDS AT THIS TIME
--- NOTE | 2016-06-25 10:31 | NUR ---
PATIENT LYING IN BED, WATCHING T.V. VOICES NO NEEDS AT THIS TIME. OXYGEN ON PER NASAL CANULA AT 2.5 L.
--- NOTE | 2016-06-25 12:00 | NUR ---
GLUCOSE LEVEL 131. NO SLIDING SCALE INSULIN
--- NOTE | 2016-06-25 13:04 | NUR ---
Pt continues to be stable. Family at bedside visiting. No signs of any discomfort or distress. Call light in reach. No voiced complaints.
--- NOTE | 2016-06-25 14:03 | NUR ---
DR. Chema CARSON IN. NO NEW ORDERS RECEIVED FOR THIS PATIENT
--- NOTE | 2016-06-25 16:24 | NUR ---
PATIENT HAS MULTIPLE VISITORS IN ROOM. VOICES NO NEEDS AT THIS TIME
--- NOTE | 2016-06-25 19:40 | NUR ---
PT WATCHING TV, PAUMA, CONVERSES PLEASANTLY, ATTEMPTS TO USE URINAL, DOES SPILL AND HAS PERIODS OF INCONTINENCE EPISODES.
[2016-06-25 22:05] VITALS: BP 118/71
--- NOTE | 2016-06-26 01:17 | NUR ---
PT APOLOGIC, VERBALIZED INCONTINENT OF URINE, LINEN CHANGE.
--- NOTE | 2016-06-26 05:37 | NUR ---
PT RESTING QUIETLY, EARLIER TURNED OFF TV. RESPIRATIONS REGULAR AND UNLABORED.
[2016-06-26 06:21] LABS: BASOPHILS 0.2 % (0.0-2.0); EOSINOPHILS 1.4 % (0-7); HEMATOCRIT 36.2 % (42.0-54.0); HEMOGLOBIN 11.9 g/dL (13.5-17.5); IMMATURE GRANULOCYTES 0.3 % (0-5); LYMPHOCYTES 25.6 % (15-50); MCH 30.4 pg (26.0-34.0); MCHC 32.9 g/dL (31.0-37.0); MCV 92.6 fL (80.0-100.0); MEAN PLATELET VOLUME 9.8 fL (7.4-10.4); MONOCYTES 4.8 % (2-11); NEUTROPHILS 67.7 % (40-80); PLATELET COUNT 213 10x3/uL (130-400); RBC 3.91 10x6/uL (4.20-6.10); RDW 15.9 % (11.5-14.5); WBC 6.7 10x3/uL (4.8-10.8)
[2016-06-26 06:48] LABS: INR 2.23 (0.85-1.17); PROTIME 24.8 SECONDS (11.6-15.0)
[2016-06-26 07:10] LABS: CALC OSMOLALITY 278 mosm/kg (275-300); CALCIUM 8.3 mg/dL (8.5-10.1); CARBON DIOXIDE 31.1 mmol/L (21.0-32.0); CHLORIDE - SERUM 101 mmol/L (98-107); CREATININE - SERUM 0.8 mg/dL (0.6-1.3); GLUCOSE 120 mg/dL (74-106); POTASSIUM - SERUM 3.8 mmol/L (3.5-5.1); SODIUM 139 mmol/L (136-145); UREA NITROGEN 13 mg/dL (7-18); eGFR NON AFRICAN AMERICAN > 90 mL/min (90-120)
--- NOTE | 2016-06-26 08:01 | NUR ---
SITTING UP IN BED EATING BREAKFAST. DENIES PAIN. IS CONFUSED BUT PLEASANT. OXYGEN IN PLACE.
[2016-06-26 09:04] VITALS: BP 105/75
--- NOTE | 2016-06-26 15:46 | NUR ---
RESTING QUIETLY IN BED. NO S/S DISTRESS. CALL LIGHT IN REACH
--- NOTE | 2016-06-26 19:23 | NUR ---
PT RESTING IN BED WITH EYES OPEN. ALERT AND ORIENTED X 3. DENIES NEEDS AT THIS TIME. VSS. SR'S ARE UP X 3 IN BED. CALL LIGHT AND BEDSIDE TABLE ARE WITHIN EASY REACH.
--- NOTE | 2016-06-26 21:44 | NUR ---
PT IS RESTING QUIETLY IN BED WITH EYES CLOSED. RESPS ARE EVEN AND UNLABORED. NO ACUTE DISTRESS NOTED.
[2016-06-26 22:18] VITALS: BP 117/62
--- NOTE | 2016-06-26 23:16 | NUR ---
PT. IN BED LYING ON HIS BACK WITH HOB UP FOR COMFORT WITH EYES CLOSED AND SNORING. CALL LIGHT IS WITHIN REACH.
--- NOTE | 2016-06-27 01:29 | NUR ---
RESTING QUIETLY IN BED WITH EYES CLOSED. RESPS ARE EVEN AND UNLABORED. NO ACUTE DISTRESS NOTED.
--- NOTE | 2016-06-27 03:51 | NUR ---
RESTING IN BED WITH EYES CLOSED.
--- NOTE | 2016-06-27 06:17 | NUR ---
PT RESTING IN BED WITH EYES OPEN. ALERT AND ORIENTED X 3. PT DENIES NEEDING TO VOID AT THIS TIME. NO INCONTINENCE NOTED. DRESSED AND READY FOR THERAPY.
[2016-06-27 07:05] LABS: INR 2.27 (0.85-1.17); PROTIME 25.1 SECONDS (11.6-15.0)
[2016-06-27 08:35] VITALS: BP 110/73
--- NOTE | 2016-06-27 11:20 | NUR ---
SITTING IN WHEELCHAIR WITHOUT ANY NEEDS VOICED.
--- NOTE | 2016-06-27 13:27 | NUR ---
SITTING IN WHEELCHAIR IN GYM WOPRKING WITH THERAPY.
--- NOTE | 2016-06-27 13:35 | NUR ---
Nutrition Follow Up: Chart reviewed. Pt eating 75% of ADA diet. Pt receiving Glucerna TID. +BM 06/25/16. Wt stable. Labs noted. Meds: Coumadin. Rec continue current diet, supplement regimen. RD following.
--- NOTE | 2016-06-27 15:28 | NUR ---
SITTING UP IN BED TALKING TO MERYL SPEECH THERAPY.
--- NOTE | 2016-06-27 17:10 | NUR ---
RESTING IN BED WITH TENA;LIGHT IN REACH.
--- NOTE | 2016-06-27 19:50 | NUR ---
PT. IN BED WITH HOB UP FOR COMFORT AND FAMILY PRESENT. ASSESSMENT COMPLETED. PT. DENIES ANY NEEDS AT THIS TIME. CALL LIGHT WITHIN REACH.
[2016-06-27 22:22] VITALS: BP 115/67
--- NOTE | 2016-06-28 00:41 | NUR ---
PT. IN BED WITH HOB UP FOR COMFORT WITH EYES CLOSED AND RESP. EVEN. CALL LIGHT IS WITHIN REACH.
--- NOTE | 2016-06-28 06:21 | NUR ---
PT. IN BED WITH HOB UP FOR COMFORT WITH EYES CLOSED AND RESP. EVEN. PT. AWAKENED EASILY THIS MORNING FOR HIS MEDICATIONS. PT'S BRIEF IS SOILED WITH URINE. PT. AND BED LINENS CHANGED. BUTT BALM APPLIED TO BUTTOCK FOR PROTECTION TO PINK BLANCHABLE SKIN. CLEAN, DRY BRIEF AND NEW SCRUB TOP DONNED WITH PT. ASSISTANCE. PT. POSITIONED TO COMFORT IN BED WITH HOB UP AND CALL LIGHT WITHIN REACH. NO VOICED NEEDS AT THIS TIME.
[2016-06-28 06:32] LABS: BASOPHILS 0.1 % (0.0-2.0); EOSINOPHILS 1.5 % (0-7); HEMATOCRIT 35.9 % (42.0-54.0); HEMOGLOBIN 11.8 g/dL (13.5-17.5); IMMATURE GRANULOCYTES 0.1 % (0-5); MCH 30.6 pg (26.0-34.0); MCHC 32.9 g/dL (31.0-37.0); MEAN PLATELET VOLUME 9.6 fL (7.4-10.4); MONOCYTES 7.8 % (2-11); NEUTROPHILS 64.5 % (40-80); PLATELET COUNT 203 10x3/uL (130-400); RBC 3.86 10x6/uL (4.20-6.10); RDW 16.1 % (11.5-14.5); WBC 7.2 10x3/uL (4.8-10.8)
[2016-06-28 06:42] LABS: CALC OSMOLALITY 280 mosm/kg (275-300); CALCIUM 8.7 mg/dL (8.5-10.1); CARBON DIOXIDE 29.7 mmol/L (21.0-32.0); CHLORIDE - SERUM 102 mmol/L (98-107); GLUCOSE 119 mg/dL (74-106); POTASSIUM - SERUM 4.1 mmol/L (3.5-5.1); SODIUM 139 mmol/L (136-145); UREA NITROGEN 17 mg/dL (7-18); eGFR NON AFRICAN AMERICAN 76 mL/min (90-120)
[2016-06-28 06:52] LABS: INR 2.29 (0.85-1.17); PROTIME 25.3 SECONDS (11.6-15.0)
[2016-06-28 08:28] VITALS: BP 125/90
--- NOTE | 2016-06-28 09:41 | NUR ---
SITTING UP IN BED EATING BREAKFAST. TOOK AM PILLS THIS AM. CALLIGHT IN REACH.
--- NOTE | 2016-06-28 11:37 | NUR ---
EXERCISING IN GYM WHILE SITTING IN WHEELCHAIR.
--- NOTE | 2016-06-28 15:36 | NUR ---
RESTING IN BED WITH VISITOR IN ROOM.
--- NOTE | 2016-06-28 16:41 | NUR ---
CARE TEAM MEETING: PATIENT, SPOUSE AND SON ATTENDED MEETING. TEANTIVE DISCHARGE DATE IS 07/04/16. PATIENT PCP IS DR. LIMA. WILL HAVE HOME HEALTH AT DISCHARGE. WILL CONTINUE TO FOLLOW WITH PATIENT UNTIL DISCHARGED.
--- NOTE | 2016-06-28 17:26 | NUR ---
SITTING UJP IN BED AWAKE AND ALERT.
--- NOTE | 2016-06-28 20:49 | NUR ---
RESTING IN BED AROUSES TO VOICE. ALERT ORIENTED CONVERSANT. DENIES NEEDS. NO ACUTE DISTRESS NOTED.
[2016-06-28 23:00] VITALS: BP 108/71
--- NOTE | 2016-06-29 01:19 | NUR ---
RESTING IN BED EYES CLOSED RESPIRATIONS OBSERVED. EVEN AND UNLABORED.
--- NOTE | 2016-06-29 02:20 | NUR ---
IN BED, EYES CLOSED. RESPIRING QUIETLY.
[2016-06-29 06:46] LABS: INR 2.56 (0.85-1.17); PROTIME 27.6 SECONDS (11.6-15.0)
--- NOTE | 2016-06-29 07:49 | NUR ---
PATIENT AWAKE. ALERT/ORIENT X4. SITTING UP IN BED TO EAT BREAKFAST. CALL LIGHT WITHIN REACH. VOICES NO NEEDS
--- NOTE | 2016-06-29 08:27 | NUR ---
PATIENT REFUSED MINERAL OIL. STATED HE HAS HAD SOFT BOWEL MOVEMENTS. TOOK SCHEDULED MIRALAX
[2016-06-29 09:32] VITALS: BP 122/69
--- NOTE | 2016-06-29 10:00 | NUR ---
PATIENT IN REHAB ROOM. WORKING WITH PHYSICAL THERAPIST. VOICES NO PAIN/DISC AT THIS TIME
--- NOTE | 2016-06-29 12:20 | NUR ---
PATIENT SITTING UP IN A WHEELCHAIR TO EAT LUNCH. OXYGEN ON AT 1.5L PER N/C. PATIENT DENIES ANY SOB.
--- NOTE | 2016-06-29 14:12 | NUR ---
PATIENT TURNED RETANNED LEATHER ROLLER LIGHT TO USE BATHROOM. USING WALKER WITH STAND BY ASST OF ONE.
--- NOTE | 2016-06-29 16:23 | NUR ---
RESTING QUIETLY IN BED.DENIES NEEDS.
--- NOTE | 2016-06-29 16:34 | NUR ---
PATIENT RESTING IN BED AFTER THERAPY. IN ROOM VISITING WITH PATIENT.
[2016-06-29 19:00] VITALS: BP 118/76
--- NOTE | 2016-06-29 19:30 | NUR ---
PATIENT IN BED, AWAKE. REMINDED HIM HE IS TO CALL FOR ASSIST OOB AND TO THE BR. WHEN HE ASKED WHY, I REMINDED HIM HE GOT UP TO W/C AND WAS OUT IN THE [place] OUTSIDE HIS ROOM IN THE MIDDLE OF THE NIGHT LAST NIGHT. PATIENT HAD NO MEMORY OF DOING SO. ALSO TOLD HIM THAT IF HE ATTEMPTS OOB AGAIN I WILL HAVE TO PUT A BED ALARM ON HIS BED IT IS HOSPITAL POLICY FOR ALL PATIENT WHO ARE HIGH RISK TO FALL. SAID HE WOULD TRY TO REMEMBER.
--- NOTE | 2016-06-29 21:10 | NUR ---
PATIENT WAS FOUND ATTEMPTING OOB TO BR @ 2030 HRS. NOW REMINDED HIM OF OUR EARLIER CONVERSATION, AND EMPLACED A ZENAIDA ALARM ON HIS BED. TOLD HIM CATY ALARM IS MUCH TO REMIND HIM TO REMAIN IN BED AND CALL FOR ASSIST IT IS TO NOTIFY US. SAYS HE UNDERSTANDS.
--- NOTE | 2016-06-29 22:10 | NUR ---
RESTING IN BED, EYES CLOSED.
--- NOTE | 2016-06-30 00:15 | NUR ---
REMAINS IN BED, EYES CLOSED. HOB UP 30 DEGREES. APPEARS COMFORTABLE.
--- NOTE | 2016-06-30 01:30 | NUR ---
ASSISTED PATIENT UP TO BR VIA W/C. PATIENT COULD NOT REMEMBER TO USE HIS CALL LIGHT AND WAS PROMPTED BY HIS ROOMMATE TO DO SO. FOUND PATIENT INCONTINENT OF A LARGE AMOUNT OF URINE IN HIS BRIEF, TROUSERS AND PINK PAD. PATIENT URINATED FURTHER WHILE AT BR COMMODE. CLEANSED PATIENT AND CHANGED HIS BRIEF AND HIS PINK BED PAD, AND THEN RETURNED HIM TO BED.
--- NOTE | 2016-06-30 02:15 | NUR ---
CONTINUES IN BED, EYES CLOSED. NO DISTRESS NOTED.
--- NOTE | 2016-06-30 04:10 | NUR ---
SET OFF BED ALARM EXITING THE BED IN THE DARK. INTERCEPTED HIM HALF WAY TO THE BR AND ASSISTED HIM TO AMBULATE THE REST OF THE WAY THERE. CLEANSED AND CHANGED PATIENT FROM SMALL URINARY INCONTINENCE IN BRIEF. COMPLETED TOILETING QUICKLY AND WAS ASSISTED BACK TO BED. PATIENT DID NOT HEAR, OR DENIED HEARING BED ALARM ON 80% FULL VOLUME. TURNED ALARM BOX UP TO 100% VOLUME AND DEMONSTRATED THE SOUND TO HIM SO HE MIGHT RECOGNIZE IT THE NEXT TIME.
--- NOTE | 2016-06-30 06:25 | NUR ---
ASSISTED PATIENT UP TO COMMODE WHERE HE URINATED AND AHD A MEDIUM VOLUME, LOOSE BM. ALSO CLEANSED AND CHANGED PATIENT FROM PRIOR URINE INCONTINENCE IN HIS BRIEF.
--- NOTE | 2016-06-30 07:00 | NUR ---
Pt. was received at the beginning of this shift. Awake and oriented x 2. Friendly man. at bedside. Call light in reach. Pt. denies any pain or discomfort. Will be monitoring him and assisting prn with adl's. Bed adriano alarm device on and working properly. No sign of any distress.
[2016-06-30 08:04] LABS: BASOPHILS 0.2 % (0.0-2.0); EOSINOPHILS 2.2 % (0-7); HEMATOCRIT 37.9 % (42.0-54.0); HEMOGLOBIN 12.2 g/dL (13.5-17.5); IMMATURE GRANULOCYTES 0.3 % (0-5); MCH 30.1 pg (26.0-34.0); MCHC 32.2 g/dL (31.0-37.0); MCV 93.6 fL (80.0-100.0); MONOCYTES 6.3 % (2-11); PLATELET COUNT 212 10x3/uL (130-400); RBC 4.05 10x6/uL (4.20-6.10); RDW 16.2 % (11.5-14.5); WBC 6.5 10x3/uL (4.8-10.8)
[2016-06-30 08:13] LABS: CALC OSMOLALITY 288 mosm/kg (275-300); CALCIUM 9.6 mg/dL (8.5-10.1); CARBON DIOXIDE 29.6 mmol/L (21.0-32.0); CHLORIDE - SERUM 102 mmol/L (98-107); CREATININE - SERUM 0.9 mg/dL (0.6-1.3); GLUCOSE 131 mg/dL (74-106); POTASSIUM - SERUM 4.6 mmol/L (3.5-5.1); SODIUM 144 mmol/L (136-145); UREA NITROGEN 12 mg/dL (7-18); eGFR NON AFRICAN AMERICAN 85 mL/min (90-120)
[2016-06-30 08:17] LABS: INR 2.56 (0.85-1.17); PROTIME 27.7 SECONDS (11.6-15.0)
[2016-06-30 10:26] VITALS: BP 127/73
--- NOTE | 2016-06-30 15:55 | NUR ---
Pt. has had an uneventful day. Pt. went to therapy and participated well. Continuing to observe and assist.
--- NOTE | 2016-06-30 19:30 | NUR ---
FOUND PT STANDING ON SIDE OF BED, PT STATED HE HAD BEEN TO THE BATHROOM AND WAS GETTING BACK IN BED. PT CONVERSIVE.
[2016-06-30 19:41] VITALS: BP 127/78
--- NOTE | 2016-06-30 20:15 | NUR ---
PT WATCHING THE INAGUARAL BALL ON TV. PT ALERT, ORIENTED, CONVERSIVE, NO S/S OF ACUTE DISTRESS. PT DENIES PAIN.
--- NOTE | 2016-07-01 00:13 | NUR ---
PT RESTING QUIETLY IN BED, RESPIRATIONS REGULAR AND UNLABORED, NO S/S OF ACUTE DISTRESS.
--- NOTE | 2016-07-01 02:50 | NUR ---
RESTING IN BED WITH EYES CLOSED.
--- NOTE | 2016-07-01 06:25 | NUR ---
pt friendly and smiley and states he slept well.
[2016-07-01 06:46] LABS: INR 2.66 (0.85-1.17); PROTIME 28.5 SECONDS (11.6-15.0)
[2016-07-01 09:00] VITALS: BP 111/77
--- NOTE | 2016-07-01 09:00 | NUR ---
INCONTINENT OF URINE; PERICARE DONE. BEUTT PASTE APPLIED. TOOK AM PILLS WELL. ZENAIDA ALARM ON. CALLGHT IN REACH.
--- NOTE | 2016-07-01 11:34 | NUR ---
SITTING UP IN BED READING THE PAPER.
--- NOTE | 2016-07-01 13:40 | NUR ---
SITTING UP IN BED PLAYING A CARD GAME WITH VISITORS IN THE ROOM.
--- NOTE | 2016-07-01 15:50 | NUR ---
SITTING IN BED WATCHING TV. NO NEEDS VOICED.
--- NOTE | 2016-07-01 17:33 | NUR ---
SITTING UP IN BED WITH VISITOR IN THE ROOM.
--- NOTE | 2016-07-01 19:20 | NUR ---
pt smiles easily and is conversive, pt denies any needs, bed alarm on. pt demonastated use of calllight. emptied urinal.
[2016-07-01 19:42] VITALS: BP 118/70
--- NOTE | 2016-07-02 02:01 | NUR ---
pt resting quietly with eyes closed, not s/s of acute distress. respirations regular and unlabored.
--- NOTE | 2016-07-02 06:12 | NUR ---
PT ALERT, CONVERSIVE VOIDING PER URINAL, NEEDS ASSISTANCE TO DUMP THE URINAL.
[2016-07-02 07:36] LABS: INR 2.56 (0.85-1.17); PROTIME 27.7 SECONDS (11.6-15.0)
--- NOTE | 2016-07-02 08:15 | NUR ---
PT RESTING IN BED WITH EYES OPEN CALL LIGHT IN REACH NO PROBLEMS WILL BELÉN
--- NOTE | 2016-07-02 12:00 | NUR ---
PT RESTING IN BED WITH EYES OPEN CALL LIGHT IN REACH NO PROBLEMS WILL MONITER
--- NOTE | 2016-07-02 18:27 | NUR ---
PT RESTING IN BED WITH EYES OPEN CALL LIGHT IN REACH NO PROBLEMS WILL MONITER
--- NOTE | 2016-07-02 20:06 | NUR ---
PT IN BED WATCHING TV. NO CONCERNS MADE KNOWN AT THIS TIME. CALL LIGHT IN REACH.
[2016-07-02 21:41] VITALS: BP 121/71
--- NOTE | 2016-07-02 23:06 | NUR ---
PT IN BED WITH EYES CLOSED. NO SIGN/SYMPTOMS OF DISTRESS NOTED AT THIS TIME. CALL LIGHT IN REACH.
--- NOTE | 2016-07-03 01:20 | NUR ---
PT IN BED WITH EYES CLOSED. NO SIGN/SYMPTOMS OF DISTRESS NOTED AT THIS TIME. CALL LIGHT IN REACH.
--- NOTE | 2016-07-03 03:43 | NUR ---
PT IN BED WITH EYES CLOSED. NO DISTRESS NOTED. CALL LIGHT IN REACH.
[2016-07-03 06:48] LABS: BASOPHILS 0.3 % (0.0-2.0); EOSINOPHILS 1.8 % (0-7); HEMATOCRIT 38.1 % (42.0-54.0); HEMOGLOBIN 12.1 g/dL (13.5-17.5); IMMATURE GRANULOCYTES 0.3 % (0-5); LYMPHOCYTES 30.8 % (15-50); MCH 29.8 pg (26.0-34.0); MCHC 31.8 g/dL (31.0-37.0); MCV 93.8 fL (80.0-100.0); MEAN PLATELET VOLUME 10.7 fL (7.4-10.4); MONOCYTES 6.5 % (2-11); NEUTROPHILS 60.3 % (40-80); PLATELET COUNT 221 10x3/uL (130-400); RBC 4.06 10x6/uL (4.20-6.10); RDW 16.3 % (11.5-14.5)
[2016-07-03 07:00] LABS: ANION GAP 14.1 mmol/L (8-16); CALCIUM 9.2 mg/dL (8.5-10.1); CARBON DIOXIDE 27.8 mmol/L (21.0-32.0); CREATININE - SERUM 1.1 mg/dL (0.6-1.3); POTASSIUM - SERUM 3.9 mmol/L (3.5-5.1)
--- NOTE | 2016-07-03 07:00 | NUR ---
PT WAS RECEIVED IN HIS ROOM SITTING IN WHEELCHAIR AT THE BEGINNING OF THIS SHIFT. ALERT AND ORIENTED X 2. HE DOES AMBULATE AD CESAR TO AND FROM THE BATHROOM ON HIS OWN WITH WHEELCHAIR. VITAL SIGNS; TEMP. 98.3, PULSE 93, RESP. 14, B/P 115/66. DENIES ANY NEEDS AND/OR COMPLAINTS AT THIS TIME. WILL BE MONITORING HIM AND ASSISTING PRN WITH ADL'S.
[2016-07-03 10:12] VITALS: BP 115/66
--- NOTE | 2016-07-03 12:00 | NUR ---
PATIENT DISCHARGING HOME WITH FAMILY ON 07/04/16. [facility] WILL PROVIDE NURSING, PT, OT. [facility] WILL DELIVER A TUB TRANSFER BENCH TO PATIENT HOME. APPOINTMENT: DR. LIMA 07/12/16 @ 9:40. PATIENT SPOUSE REQUEST ODER FOR TTB BE SENT TO [facility]. PATIENT CHOICE FORM FOR HOME HEALTH AND [facility] FORM SIGNED, EXPLAINED AND FILED IN CHART. WILL CONTINUE TO FOLLOW WITH PATIENT UNTIL DISCHARGED
--- NOTE | 2016-07-03 12:23 | NUR ---
PT BACK TO HIS ROOM WITH HIS PRESENT. HE IS EATTING HIS LUNCH. NO COMPLAINTS OR CONCERNS VOICED. STABLE CONDITION OBSERVED.
--- NOTE | 2016-07-03 20:12 | NUR ---
PT IN BED WITH EYES CLOSED AND CHEST RISING. RESPIRATIONS EVEN AND UNLABORED. EASILY TO VERBAL STIMULI. NO CONCERNS NOTED. CALL LIGHT IN REACH.
[2016-07-03 20:32] VITALS: BP 115/70
--- NOTE | 2016-07-03 22:45 | NUR ---
PT RESTING IN BED WITH EYES CLOSED AND CHEST RISING. RESPIRATIONS EVEN AND UNLABORED. NO SIGN/SYMPTOMS OF DISTRESS NOTED. CALL LIGHT IN REACH. WILL CONTINUE TO OBSERVE.
--- NOTE | 2016-07-04 00:38 | NUR ---
PT IN BED WITH EYES CLOSED AND CHEST RISING. RESPIRATIONS EVEN AND UNLABORED. NO SIGN/SYPTOMS OF DISTRESS NOTED CALL LIGHT IN REACH. WILL CONTINUE TO OBSERVE.
--- NOTE | 2016-07-04 02:18 | NUR ---
PT IN BED WITH EYES CLOSED AND CHEST RISING. RESPIRATIONS EVEN AND UNLABORED. NO SIGN/SYMPTOMS OF PAIN OR DISTRESS NOTED. CALL LIGHT IN REACH. WILL CONTNUE TO OBSERVE.
--- NOTE | 2016-07-04 04:23 | NUR ---
PT IN BED WITH EYES CLOSED AND CHEST RISING. RESPIRATIONS EVEN AND UNLABORED. NO CONCERNS NOTED AT THIS TIME. CALL LIGHT IN REACH. WILL CONTINUE TO OBSERVE.
--- NOTE | 2016-07-04 05:39 | NUR ---
PT IN BED WITH EYES OPEN AND EASILY AROUSED TO DOOR OPENNING. MIDLINE TO LEFT UPPER ARM FLUSHED WITHOUT DIFFICULTY. PT REQUESTED SHORTS WHICH WERE APPLIED AND SHIRT CHANGED. 950MLS OF URINE DARK YELLOW IN COLOR. NO CONCERNS MADE KNOWN AT THIS TIME. CALL LIGHT IN REACH.
--- NOTE | 2016-07-04 05:47 | NUR ---
PT IN BED WITH EYES OPEN AND REQUEST ASSISTENCE TO BATHROOM AND WAS ASSISTED TO BATHROOM FOR URINATION ONLY. ASSISTED BACK TO BED WITH BRIEF AND CLOTHING CHANGED AND LAYING BED WATHCHING TV AT THIS TIME. AWARE THAT TODAY HE IS GOING HOME. NO CONCERNS NOTED AT THIS TIME. CALL LIGHT IN REACH.
[2016-07-04 08:00] VITALS: BP 130/67
--- NOTE | 2016-07-04 08:00 | NUR ---
SHIFT ASSMT COMPLETED.PLANS FOR DC TODAY TO HOME.
--- NOTE | 2016-07-04 11:50 | NUR ---
DISCHARGED TO HOME IN STABLE CONDITION WITH .HOME CARE INSTRUCTIONS GIVEN.
--- NOTE | 2016-07-04 14:24 | NUR ---
PATIENT DISCHARGED HOME TODAY WITH SPOUSE VIA PRIVATE CAR
== END 2016-07-04 11:50 | disposition home health service (06) | DRG 189 ==
LOC: D.REHAB 18:50
PROVIDERS: ADMIT Emergency Medicine
DX: J96.01 Acute respiratory failure with hypoxia (principal); I26.99 Other pulmonary embolism without acute cor pulmonale; I27.2 Other secondary pulmonary hypertension; I35.0 Nonrheumatic aortic (valve) stenosis; I48.91 Unspecified atrial fibrillation; I95.9 Hypotension, unspecified; I25.9 Chronic ischemic heart disease, unspecified; E11.649 Type 2 diabetes mellitus with hypoglycemia without coma; I34.0 Nonrheumatic mitral (valve) insufficiency; I07.1 Rheumatic tricuspid insufficiency; R55 Syncope and collapse; I25.10 Atherosclerotic heart disease of native coronary artery without angina pectoris; I10 Essential (primary) hypertension; E78.5 Hyperlipidemia, unspecified; D64.9 Anemia, unspecified; R53.83 Other fatigue; R53.1 Weakness; R53.81 Other malaise; R41.81 Age-related cognitive decline

== ENCOUNTER → 2019-04-29 13:26 | Outpatient (CLI) | payer MEDICARE, OTHER ==
[2016-06-23 10:36] VITALS: BMI 42.4
[~2019-04-29 13:26] MED LIST changes: +ARTIFICIAL TEAR15 ML EACH EYE; +SALINE FLUSH10 ML IV
--- NOTE | 2019-05-05 17:02 | EC ---
PATIENT:FERNY WILLIAM DATE OF SERVICE: 04/29/19 SEX: M MEDICAL RECORD: [id number] DATE OF : 34 [facility] AGE OF PATIENT: 88 ADMISSION DATE: 04/29/19 REFERRING PHYSICIAN: INTERPRETING PHYSICIAN: REGINALDO REEVES MD ECHOCARDIOGRAM REPORT ECHO CHARGES 4 ECHO COMPLETE Date: 04/29/19 CLINICAL DIAGNOSIS: AORTIC STENOSIS ECHOCARDIOGRAPHIC MEASUREMENTS (adult normal given) AC root (d.<3.7cm) 3.7 cm LV Septum d (<1.2 cm> 1.4 cm Valve Excursion 0.80 cm LV Septum (systole) 1.6 cm Left Atria (s.<4.0cm> 4.0 cm LVPW d(<1.2cm) 1.4 cm RV (d.<2.3cm) 3.9 cm LVPW (sytole) 1.6 cm LV diastole(<5.6CM) 5.6 cm MV E-F(>70mm/sec) cm LV systole 4.2 cm LVOT Diameter 1.8 cm MV exc.(>10mm) 1.4 cm Est.ejection fraction (50-75%) % DOPPLER: LVIT cm/sec A cm/sec E 79.0 cm/sec LA cm/sec RVSP 34 mmHg LVOT 94 cm/sec AOP1/2T m/s Asc. Ao 312 cm/sec RVOT 71 cm/sec RA cm/sec PA 121 cm/sec AV Gradient Peak 38.88mmHg AV Mean 21.99mmHg AV Area 0.7 cm MV Gradient Peak 4.19 mmHg MV Mean 1.51 mmHg MV Area cm COMMENTS: Equipment Service Associate: Nancy DONALDSON Final Finisher Forging Dies: 1 Dr. Reeves TAPE# PACS Pericardial Effusion N DATE OF SERVICE: 04/29/2019 FINDINGS: 1. Left ventricular chamber size is within normal limits. Left ventricular systolic function is normal. Overall ejection fraction estimated at 60%. 2. Left atrium, right atrium, and right ventricular chamber sizes are mildly dilated. Left atrium measures 4.0 cm. 3. Valvular structures have normal structure and motion. 4. Aortic valve demonstrates [id number] aortic stenosis, valve area calculates to 1.0 cm-squared and there is a gradient of 38 mm across the valve. ECHOCARDIOGRAM REPORT [id number] FERNY WILLIAM The remaining valvular structures have normal structure and motion. 5. Doppler interrogation elsewise reveals moderate mitral regurgitation, [id number] tricuspid regurgitation, no other valvular insufficiency or stenosis. 6. No evidence of pericardial effusion or left ventricular thrombus. TRANSINT:[id number] Voice Confirmation ID: [id number] DOCUMENT ID: [id number] REGINALDO REEVES MD at 1702 CC: [id number] DICTATION DATE: 04/29/19 1547 FIBERGLASS BOAT MAKER: 04/29/19 1740 DEP CLI 04/29/19 [facility] [address] [place] [address]
== END | disposition home or self-care (01) ==
LOC: D.HCCECHO 13:26
PROVIDERS: ATTEND Internal Medicine Interventional Cardiology
DX: I35.0 Nonrheumatic aortic (valve) stenosis (principal)

== ENCOUNTER 2019-07-31 22:13 | Inpatient (IN) | payer MEDICARE, OTHER ==
[~2019-07-31] VITALS: Ht 175.3 cm; Wt 86.2 kg
[~2019-07-31 22:13] MED LIST changes: +DULCOLAX5 MG PO
--- NOTE | 2019-07-31 22:16 | NUR ---
PATIENT TO CT VIA STRETCHER
--- NOTE | 2019-07-31 22:26 | NUR ---
EDKatie PEREZ IN ROOM WITH PATIENT AT THIS TIME. PT RETURNED FROM CT AT THIS TIME.
[2019-07-31 22:33] LABS: BASOPHILS 0.1 % (0-2); EOSINOPHILS 1.1 % (0-7); HEMATOCRIT 39.1 % (42.0-54.0); HEMOGLOBIN 13.1 g/dL (13.5-17.5); IMMATURE GRANULOCYTES 0.1 % (0-5); MCH 31.8 pg (26.0-34.0); MCHC 33.5 g/dL (31.0-37.0); MCV 94.9 fL (80.0-100.0); MEAN PLATELET VOLUME 11.6 fL (7.4-10.4); MONOCYTES 5.8 % (2-11); NEUTROPHILS 43.9 % (40-80); PLATELET COUNT 122 10x3/uL (130-400); RBC 4.12 10x6/uL (4.20-6.10); RDW 15.2 % (11.5-14.5); WBC 9.8 10x3/uL (4.8-10.8)
[2019-07-31 22:35] VITALS: BP 122/80
--- NOTE | 2019-07-31 22:37 | NUR ---
STROKE BAnd [id number]
[2019-07-31 22:40] LABS: APTT 41.9 SECONDS (22.8-39.4); INR 2.75 (0.85-1.17); PROTIME 28.6 SECONDS (11.6-15.0)
--- NOTE | 2019-07-31 22:44 | NUR ---
DR PEREZ ON PHONE WITH DR BOLTON FROM [facility]. THEY DO NOT THINK PT IS A CANIDATE FOR TPA AT THIS TIME.
[2019-07-31 22:46] LABS: CALC OSMOLALITY 281 mosm/kg (275-300); CALCIUM 9.1 mg/dL (8.5-10.1); CARBON DIOXIDE 30.1 mmol/L (21.0-32.0); CHLORIDE - SERUM 102 mmol/L (98-107); GLUCOSE 132 mg/dL (74-106); SODIUM 139 mmol/L (136-145); UREA NITROGEN 17 mg/dL (7-18); eGFR NON AFRICAN AMERICAN 75 mL/min (90-120)
[2019-07-31 23:04] LABS: ALBUMIN 3.5 g/dL (3.4-5.0); ALKALINE PHOSPHATASE 80 U/L (30-120); ALT (SGPT) 41 U/L (10-68); BILIRUBIN - TOTAL 0.43 mg/dL (0.2-1.3); CKMB 0.6 U/L (0.0-3.6); CREATINE KINASE 40 UL (21-232); MAGNESIUM - SERUM 1.7 mg/dL (1.8-2.4); PRO BNP 1091 pg/mL (0-450); PROTEIN - SERUM 6.7 g/dL (6.4-8.2); THYROID STIMULATING HORMONE 8.02 uIU/mL (0.36-3.74)
[2019-07-31 23:10] LABS: TROPONIN-I < 0.017 ng/mL (0.000-0.060)
--- NOTE | 2019-07-31 23:30 | NUR ---
PT ASSISTED WITH URINAL AT THIS TIME. URINE COLLECTED AND SENT TO LAB.
[2019-07-31 23:53] LABS: UDS - AMPHET NEGATIVE QUAL (NEGATIVE); UDS - BARB NEGATIVE QUAL (NEGATIVE); UDS - BENZO NEGATIVE QUAL (NEGATIVE); UDS - COCAINE NEGATIVE QUAL (NEGATIVE); UDS - OPIATE NEGATIVE QUAL (NEGATIVE); UDS - PCP NEGATIVE QUAL (NEGATIVE); UDS - THC NEGATIVE QUAL (NEGATIVE)
--- NOTE | 2019-07-31 23:55 | NUR ---
RECEIVED PT TO FLOOR VIA STRETCHER. PT SCOOTED ONTO BED FROM STRETCHER INDEPENDENTLY. REVIWED HOME MEDS AND HISTORY. PT ALERT & ORIENTED EXCEPT FOR TIME, DID NOT KNOW DATE. PT HAS DEMENTIA THEREFORE MEMORY DEFECITS. STRENGTH EQUAL BILAT UPPER AND LOWER. NO WEAKNESS. SPEECH IS CLEAR. AT BEDSIDE. TELEMETRY RUNNING CONTROLLED AFIB.
[2019-08-01] VITALS (7 sets, daily range): BP systolic 113–136; BP diastolic 67–87; Ht 175.3 cm; Wt 86.2 kg
[2019-08-01 00:05] LABS: APPEARANCE CLEAR (CLEAR); BILIRUBIN NEGATIVE (NEGATIVE); COLOR YELLOW (YELLOW); GLUCOSE NEGATIVE (NEGATIVE); KETONE NEGATIVE (NEGATIVE); NITRITE NEGATIVE (NEGATIVE); PROTEIN NEGATIVE (NEGATIVE); UROBILINOGEN NORMAL (NORMAL)
[2019-08-01 00:07] LABS: BACTERIA NONE SEEN /hpf (NEGATIVE); EPITHELIAL CELLS 0-5 /hpf (0-5); RED CELLS - URINE 0-5 /hpf (0-5); WHITE CELLS - URINE NSEEN /hpf (NEGATIVE)
[2019-08-01] MEDS ORDERED: COUMADIN7.5 MG PO (00:07)
[2019-08-01] MEDS ORDERED: COUMADIN5 MG PO (00:08)
[2019-08-01] MEDS ORDERED: MIRALAX17 GM PO (00:12)
--- NOTE | 2019-08-01 07:47 | NUR ---
PT RESTING IN BED WITH EYES OPEN, AT THE BEDSIDE. IV LOCATED TO LEFT WRIST CURRENTLY SL, RIGHT AC SL. ALERT AND ORIENTED BUT HAS EPISODES OF SLURRED/STUTTERED SPEECH. EXTREMELY [place]. NO S/S OF DISTRESS AT THIS TIME, DENIES NEEDS, WILL CONT TO MONITOR.
--- NOTE | 2019-08-01 10:30 | NUR ---
PT RESTING IN BED. NO SIGNS OF DISTRESS. IV TO LEFT WRIST AND RIGHT AC PATENT NO REDNESS OR TENDERNESS. ON TELEMETRY 77 CONT A FIB. VERY [place] & [place]. ALL FALL PRECAUTIONS IN PLACE. DENIES ANY FURTHER NEED AT THIS TIME. CALL LIGHT IN REACH. BED LOW POSITION. NO FAMILY AT BEDSIDE AT THIS TIME.
[2019-08-02 00:30] VITALS: BP 131/74
[2019-08-02 05:00] VITALS: BP 132/81
[2019-08-02 08:37] VITALS: BP 114/73
--- NOTE | 2019-08-02 10:28 | NUR ---
RESTING IN BED, NO DISTRESS NOTED, LIME, IN ROOM, SL IN PLACE X2, TELE IN PLACE
[2019-08-02 13:13] VITALS: BP 127/75
--- NOTE | 2019-08-02 13:41 | MORECARE ---
CASE MANAGEMENT DISCHARGE SUMMARY PATIENT: FERNY WILLIAM UNIT: [id number] ADM DATE: 08/01/19 AGE: 88 : 32 SEX: M ROOM/BED: D.2233 AUTHOR: LETI HOLLEY PHYSICIAN: REFERRING PHYSICIAN: ANGIE LIMA MD DATE OF SERVICE: 08/02/19 Discharge Plan Patient Name: FERNY WILLIAM Facility: [facility]:[place] : 1930 Planned Disposition: Home Health Service Anticipated Discharge Date: Discharge Date: Expected LOS: Initial Reviewer: [id number] Initial Review Date: 08/02/2019 Generated: 08/02/19 2:41 pm Comments DCP- Discharge Planning Updated by [email or web address]: Digna Ricks on 08/02/19 12:[address] Patient Name: FERNY WILLIAM Admission Status: ER Accout number: [id number] Admission Date: 08-01-2019 : 1930 Admission Diagnosis: Attending: ANGIE LIMA Current LOS: 1 Anticipated DC Date: Planned Disposition: Home Health Service Primary Insurance: MEDICARE A & B Discharge Planning Comments: M MET WITH PATIENT TO DISCUSS DC PLANNING/NEEDS AFTER OBTAINING VERBAL CONSENT. PLANS TO DC TO HOME. WOULD BENEFIT FROM HH. PATTIE SIGNED FOR [facility]. I AM FAXING REFERRAL NOW. IMM SIGNED. CM TO FOLLOW AND ASSIST. Bolt Cutter: Digna Ricks Coverage Notice Reviewer: [id number] Arsalan Ricks Notice Issued Date-Time: 08/02/2019 13:36 Notice Type: IM Discharge Notice Notice Delivered To: Relationship to Patient: Chef Saucier Name: Delivery Method: HAND - Hand Delivered Loretta Days: Prior Verbal Notification: Recipient Understood Notice: Yes Recipient Signature: Yes Med Rec Note Co-signed by Attending: Coverage Notice Comment: Reviewer: [id number] Arsalan Ricks Notice Issued Date-Time: 08/02/2019 13:36 Notice Type: Patient Choice Letter Notice Delivered To: Patient Relationship to Patient: Chef Saucier Name: Delivery Method: HAND - Hand Delivered Loretta Days: Prior Verbal Notification: Recipient Understood Notice: Yes Recipient Signature: Yes Med Rec Note Co-signed by Attending: Coverage Notice Comment: [facility] Patient Name: FERNY WILLIAM Page [phone] at 1341 All edits/amendments must be made on the electronic document DICTATION DATE: 08/02/19 1341 COMMUNITY DEVELOPMENT PLANNER: GRANT 08/02/19 1341 RPT#: [id number] DC DATE: STATUS: ADM IN [facility] [address] [place] [address] END OF REPORT
--- NOTE | 2019-08-02 13:48 | MORECARE ---
CASE MANAGEMENT DISCHARGE SUMMARY PATIENT: FERNY WILLIAM UNIT: [id number] ADM DATE: 08/01/19 AGE: 88 : 32 SEX: M ROOM/BED: D.[facility], [id number] AUTHOR: LETI HOLLEY PHYSICIAN: REFERRING PHYSICIAN: ANGIE LIMA MD DATE OF SERVICE: 08/02/19 Discharge Plan Patient Name: FERNY WILLIAM Facility: [facility]:[place] : 1930 Planned Disposition: Home Health Service Anticipated Discharge Date: Discharge Date: Expected LOS: Initial Reviewer: [email or web address] Initial Review Date: 08/02/2019 Generated: 08/02/19 2:47 pm Comments DCP- Discharge Planning Updated by [email or web address]: Digna Ricks on 08/02/19 12:[address] Patient Name: FERNY WILLIAM Admission Status: ER Accout number: [id number] Admission Date: 08-01-2019 : 1930 Admission Diagnosis: Attending: ANGIE LIMA Current LOS: 1 Anticipated DC Date: Planned Disposition: Home Health Service Primary Insurance: MEDICARE A & B Discharge Planning Comments: M MET WITH PATIENT TO DISCUSS DC PLANNING/NEEDS AFTER OBTAINING VERBAL CONSENT. PLANS TO DC TO HOME. WOULD BENEFIT FROM HH. PATTIE SIGNED FOR [facility] . I AM FAXING REFERRAL NOW. IMM SIGNED. CM TO FOLLOW AND ASSIST. Nurse Receptionist: Digna Ricks External Providers [facility] Next Contact Date: Service Request Date: Service Type: Resolution: Reviewer: Comments: Coverage Notice Reviewer: [id number] Arsalan Ricks Notice Issued Date-Time: 08/02/2019 13:36 Notice Type: IM Discharge Notice Notice Delivered To: Relationship to Patient: Manager Technical Support Name: Delivery Method: HAND - Hand Delivered Loretta Days: Prior Verbal Notification: Recipient Understood Notice: Yes Recipient Signature: Yes Med Rec Note Co-signed by Attending: Coverage Notice Comment: Reviewer: [id number] Arsalan Ricks Notice Issued Date-Time: 08/02/2019 13:36 Notice Type: Patient Choice Letter Notice Delivered To: Patient Relationship to Patient: Manager Technical Support Name: Delivery Method: HAND - Hand Delivered Loretta Days: Prior Verbal Notification: Recipient Understood Notice: Yes Recipient Signature: Yes Med Rec Note Co-signed by Attending: Coverage Notice Comment: [facility] Last DP export: 08/02/19 12:41 p Patient Name: FERNY WILLIAM Page [phone] at 1348 All edits/amendments must be made on the electronic document DICTATION DATE: 08/02/19 1347 DATABASE MARKETING ANALYST: GRANT 08/02/19 1347 RPT#: [id number] DC DATE: STATUS: ADM IN [facility] [address] [place] [address] END OF REPORT
--- NOTE | 2019-08-03 13:16 | HP ---
PATIENT: FERNY WILLIAM MEDICAL RECORD: [id number] ACCOUNT: [id number] LOCATION:D.[facility] : [birth year] ADMISSION DATE: 08/01/19 PCP: ANGIE LIMA MD HISTORY AND PHYSICAL EXAMINATION CHIEF COMPLAINT: Difficulty with speech. HISTORY OF PRESENT ILLNESS: This is an 88-year-old male with a history of dementia, chronic atrial fibrillation, had acute onset of garbled speech according to his , they were sitting in their home watching TV about 0 and she noticed that he was having trouble with speech. He could not get words out and this was new. She did not think he had weakness to one side of the body or the other, but he may have had some difficulty walking and bring his left foot and leg forward. He was brought to the ER where his vital signs were stable. He was in atrial fibrillation which is chronic for him. His speech was garbled. It was felt there may be slight weakness in the left arm and leg compared to the right and he was admitted for weakness, slurred speech, possible transient ischemic attack versus stroke. PAST MEDICAL HISTORY: He has hypertension, though he is on no medicines now. He has hyperlipidemia. He has dementia. He has degenerative arthritis, history of prostate cancer. He has had heart disease and saw Dr. Reeves in the past. He has an aortic stenosis. PAST SURGICAL HISTORY: He has had bilateral knee arthroscopies. His left patella has been removed. DRUG ALLERGIES: None known. HOME MEDICATIONS: Include Paxil 10 mg once a day, Aricept 10 mg once a day, atorvastatin 40 mg once a day, amlodipine 5 mg once a day, Niaspan ER 500 once a day, memantine ER 28 mg once a day, digoxin 125 mcg once a day, warfarin daily, pantoprazole 40 mg once a day, aspirin 81 mg once a day, and MiraLax 1 dose daily. 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 He lives with his . HABITS: Former smoker. No alcohol or drugs. FAMILY HISTORY: Father at 67 due to complications of a stroke. Mother at 94 of old age. She had hypertension and arthritis. Sister with a history of heart disease and arthritis. A brother of an SD at age 82. Another brother of CHF at age 82. REVIEW OF SYSTEMS: Obtained from his as patient has dementia shows no significant weight changes. HEENT: No particular sinus or allergy problems. RESPIRATORY: No history of emphysema or asthma. CARDIAC: Again, remote history of heart disease. He does have aortic stenosis. He has chronic atrial fibrillation with controlled rate. GASTROINTESTINAL: Has occasional heartburn. GENITOURINARY: History of prostate cancer, treated. MUSCULOSKELETAL: No significant problems there. NEUROLOGIC: No seizures, no migraine. She does have dementia. HISTORY AND PHYSICAL [id number] FERNY WILLIAM PSYCHIATRIC: Little depression. PHYSICAL EXAMINATION: VITAL SIGNS: Temperature 97.5, pulse 67, respirations 18, blood pressure 122/80, and O2 sat 98%. This morning, the patient is awake and alert. He is pleasantly confused, but he is speaking clearly. His at bedside states he seems to be back to his normal self right now. SKIN: Warm and dry. HEENT: Grossly within normal limits. NECK: Supple. No JVD or bruit. HEART: Irregularly irregular. LUNGS: Fairly clear. ABDOMEN: Soft. EXTREMITIES: No edema. NEUROLOGICAL: Cranial nerves appear intact. Basting Marker strength is equal bilaterally. ASSESSMENT: 1. Difficulty with speech. 2. Weakness on the left side, probable transient ischemic attack. 3. Chronic atrial fibrillation. 4. Dementia. PLAN: MRI of the brain has been ordered. Carotid Doppler ultrasound, echocardiogram, physical therapy. Other tests or procedures as warranted. TRANSINT:[id number] Voice Confirmation ID: [id number] DOCUMENT ID: [id number] ANGIE LIMA MD at 1316 CC: [id number] DICTATION DATE: 08/02/191747 GUMMED TAPE PRESS OPERATOR: 08/02/192122 DIS IN 08/02/19 [facility] [address] [place] [address]
--- NOTE | 2019-08-03 15:04 | MORECARE ---
CASE MANAGEMENT DISCHARGE SUMMARY PATIENT: FERNY WILLIAM UNIT: [id number] ADM DATE: 08/01/19 AGE: 88 : 32 SEX: M ROOM/BED: D.2233 AUTHOR: LETI HOLLEY PHYSICIAN: REFERRING PHYSICIAN: ANIGE LIMA MD DATE OF SERVICE: 08/03/19 Discharge Plan Patient Name: FERNY WILLIAM Facility: [facility]:[place] : 1930 Planned Disposition: Home Health Service Anticipated Discharge Date: Discharge Date: 08/02/2019 Expected LOS: Initial Reviewer: [email or web address] Initial Review Date: 08/02/2019 Generated: 08/03/19 4:04 pm Comments DCP- Discharge Planning Updated by [id number]: Digna Ricks on 08/02/19 12:[address] Patient Name: FERNY WILLIAM Admission Status: ER Accout number: [id number] Admission Date: 08-01-2019 : 1930 Admission Diagnosis: Attending: ANGIE LIMA Current LOS: 1 Anticipated DC Date: Planned Disposition: Home Health Service Primary Insurance: MEDICARE A & B Discharge Planning Comments: M MET WITH PATIENT TO DISCUSS DC PLANNING/NEEDS AFTER OBTAINING VERBAL CONSENT. PLANS TO DC TO HOME. WOULD BENEFIT FROM HH. PATTIE SIGNED FOR [facility]. I AM FAXING REFERRAL NOW. IMM SIGNED. CM TO FOLLOW AND ASSIST. Boat Carpenter: Digna Ricks Coverage Notice Reviewer: [id number] Arsalan Ricks Notice Issued Date-Time: 08/02/2019 13:36 Notice Type: IM Discharge Notice Notice Delivered To: Relationship to Patient: Market Development Manager Name: Delivery Method: HAND - Hand Delivered Loretta Days: Prior Verbal Notification: Recipient Understood Notice: Yes Recipient Signature: Yes Med Rec Note Co-signed by Attending: Coverage Notice Comment: Reviewer: [id number] Arsalan Ricks Notice Issued Date-Time: 08/02/2019 13:36 Notice Type: Patient Choice Letter Notice Delivered To: Patient Relationship to Patient: Market Development Manager Name: Delivery Method: HAND - Hand Delivered Loretta Days: Prior Verbal Notification: Recipient Understood Notice: Yes Recipient Signature: Yes Med Rec Note Co-signed by Attending: Coverage Notice Comment: [facility] Last DP export: 08/02/19 12:48 p Patient Name: FERNY WILLIAM Page [phone] at 1504 All edits/amendments must be made on the electronic document DICTATION DATE: 08/03/19 1504 TRUCK BENCH MECHANIC: GRATN 08/03/19 1504 RPT#: [id number] DC DATE:08/02/19 STATUS: DIS IN [facility] [address] [place] [address] END OF REPORT
--- NOTE | 2019-08-04 11:54 | EC ---
PATIENT:FERNY WILLIAM DATE OF SERVICE: 08/01/19 SEX: M MEDICAL RECORD: [id number] DATE OF : [birth year] LOCATION:D[facility] [place] AGE OF PATIENT: 88 ADMISSION DATE: 08/01/19 REFERRING PHYSICIAN: INTERPRETING PHYSICIAN: REGINALDO REEVES MD ECHOCARDIOGRAM REPORT ECHO CHARGES 4 ECHO COMPLETE Date: 08/01/19 CLINICAL DIAGNOSIS: AFIB ECHOCARDIOGRAPHIC MEASUREMENTS (adult normal given) AC root (d.<3.7cm) 1.5 cm LV Septum d (<1.2 cm> cm Valve Excursion 0.7 cm LV Septum (systole) cm Left Atria (s.<4.0cm> 4.8 cm LVPW d(<1.2cm) cm RV (d.<2.3cm) 2.6 cm LVPW (sytole) cm LV diastole(<5.6CM) cm MV E-F(>70mm/sec) cm LV systole cm LVOT Diameter 1.4 cm MV exc.(>10mm) cm Est.ejection fraction (50-75%) % DOPPLER: LVIT cm/sec A 24 cm/sec E 64 cm/sec LA cm/sec RVSP 29.9 mmHg LVOT 76 cm/sec AOP1/2T m/s Asc. Ao 256 cm/sec RVOT 67 cm/sec RA cm/sec PA 85 cm/sec AV Gradient Peak 26.2 mmHg AV Mean 17.8 mmHg AV Area 0.5 cm MV Gradient Peak 3.2 mmHg MV Mean 1.4 mmHg MV Area cm COMMENTS: Muleser: Balwinder STAUFFERKRISTINA MEREDITH Lead Injection Mold Technician: 1 Dr. Reeves TAPE# PACS Pericardial Effusion N DATE OF SERVICE: FINDINGS: 1. Left ventricular chamber size is within normal limits. Left ventricular systolic function is normal at 55% to 60%. 2. Left atrium is enlarged at 4.8 cm. Right atrium and right ventricular chamber sizes are as well mildly dilated. 3. Valvular structures: Aortic valve demonstrates moderate calcific aortic stenosis, valve area actually calculates to 0.5 cm-squared. It appears to be larger than that. There is only a gradient 26 mm across the valve. The ECHOCARDIOGRAM REPORT [id number] FERNY WILLIAM remaining valvular structures have normal structure and motion. 4. Doppler interrogation elsewise reveals mild aortic insufficiency, trace mitral regurgitation, mild tricuspid regurgitation, no other valvular insufficiency or stenosis and pulmonary systolic pressure estimated at 30 mmHg. 5. No evidence of pericardial effusion or left ventricular thrombus. TRANSINT:[id number] Voice Confirmation ID: [id number] DOCUMENT ID: [id number] REGINALDO REEVES MD at 1154 CC: [id number] DICTATION DATE: 08/01/19 1444 LINING FOLDER: 08/02/19 0011 DIS IN 08/02/19 [facility] [id number] [place] [address]
== END 2019-08-02 14:30 | disposition home health service (06) | DRG 69 ==
LOC: D.ER 22:13 → OBSVTIME 23:05 → D.MS 23:05
PROVIDERS: Emergency Medicine; ADMIT Family Medicine; ATTEND Family Medicine
DX: G45.9 Transient cerebral ischemic attack, unspecified (principal); I48.20 Chronic atrial fibrillation, unspecified; F03.90 Unspecified dementia, unspecified severity, without behavioral disturbance, psychotic disturbance, mood disturbance, and anxiety; I35.0 Nonrheumatic aortic (valve) stenosis; I10 Essential (primary) hypertension; E78.5 Hyperlipidemia, unspecified; M19.90 Unspecified osteoarthritis, unspecified site